=== PATIENT | male | born 1940 | race Caucasian/White ===

== ENCOUNTER 2019-12-14 08:23 | Inpatient (IN) | payer MEDICARE ==
[~2019-12-14] VITALS: Ht 175.3 cm; Wt 66.2 kg
[2019-12-14] VITALS (46 sets, daily range): BP systolic 92–144; BP diastolic 16–88
--- NOTE | 2019-12-14 08:23 | NUR ---
[facility] TO ER BED 07
[2019-12-14] MEDS ORDERED: PANTOPRAZOLE 40 MG INJ VIAL IVP ONE (08:25)
[2019-12-14] MEDS ORDERED: NACL 0.9% 1,000 ML IV SCH (08:25)
--- NOTE | 2019-12-14 08:25 | NUR ---
79 Y/O MALE BIB [facility] C/O ONE EPISODE OF BLACK TARRY DIARRHEA THIS MORNING. PT DENIES ANY ABD PAIN/CHEST PAIN/COUGH/N/V/D. ABD MILDLY DISTENDED/FIRM, BOWEL SOUNDS NORMOACTIVE IN ALL QUADRANTS. DENIES ANY LIGHT HEADEDNESS/ WEAKNESS. UPON ARRIVAL TO ER, PT CARDIAC RYTHM WAS AFIB/SVT. ERMD NOTIFIED. AAOX4. PMH: HTN NKA
--- NOTE | 2019-12-14 08:34 | NUR ---
IV INSERTED BY EMS, BOLUS STARTED
[2019-12-14] MEDS ORDERED: ADENOSINE 6 MG/2 ML VIAL IVP ONE ×4 (08:38→08:55)
--- NOTE | 2019-12-14 08:40 | NUR ---
2 RN'S AND ERMD AT BEDSIDE FOR ADENOSINE ADMINISTRATION
[2019-12-14] MEDS ORDERED: DILTIAZEM 25 MG/5 ML VIAL IVP ONE ×2 (08:55)
[2019-12-14 09:05] LABS: BASOPHILS % (AUTO) 0.4 % (0.0-2.0); EOSINOPHILS # (AUTO) 0.1 K/uL (0-0.4); EOSINOPHILS % (AUTO) 1.1 % (0.0-4.0); HEMATOCRIT 41.1 % (36-52); HEMOGLOBIN 14.1 g/dL (12.0-18.0); LYMPHOCYTES # (AUTO) 0.5 K/uL (2.0-11.5); LYMPHOCYTES % (AUTO) 5.2 % (20.5-51.1); MEAN CORPUSCULAR HEMOGLOBIN 31 pg (27-31); MEAN CORPUSCULAR HGB CONC 34 g/dL (33-37); MEAN CORPUSCULAR VOLUME 91.6 fL (80-94); MONOCYTES # (AUTO) 0.8 K/uL (0.8-1.0); MONOCYTES % (AUTO) 8.1 % (1.7-9.3); NEUTROPHILS # (AUTO) 8.2 K/uL (1.8-7.7); NEUTROPHILS % (AUTO) 85.2 % (42.2-75.2); PLATELET COUNT (AUTO) 283 K/uL (140-450); RED BLOOD CELL COUNT(AUTO) 4.49 MIL/uL (4.20-6.10); RED CELL DISTRIBUTION WIDTH 14.1 % (11.6-13.7); WHITE BLOOD COUNT (AUTO) 9.6 K/uL (4.8-10.8)
--- NOTE | 2019-12-14 09:13 | NUR ---
PT IS RESTING IN BED, DENIES ANY PAIN AT THIS TIME. RESP EVEN AND UNLABORED. AAOX4.
[2019-12-14 09:21] LABS: ANION GAP 17.1 (8-16); ASPARTATE AMINOTRANSFERASE 30 U/L (15-37); CARBON DIOXIDE 24.3 mmol/L (21-32); CHLORIDE 102 mmol/L (98-107); CREATININE 1.3 mg/dL (0.6-1.3); GLUCOSE 282 mg/dL (74-106); POTASSIUM 3.4 mmol/L (3.5-5.1); SODIUM SERUM 140 mmol/L (136-145); TOTAL BILIRUBIN 0.9 mg/dL (0.0-1.0); UREA NITROGEN, BLOOD 10 mg/dL (7-18)
[2019-12-14 09:24] LABS: PROTHROMBIN TIME 9.6 secs (10.8-13.4)
[2019-12-14] MEDS ORDERED: DILTIAZEM 125 MG in DEXTROSE 5% 100 ML IV ONE (09:30)
--- NOTE | 2019-12-14 10:42 | NUR ---
PT IS RESTING IN BED. NO CHANGES IN CONDITION OBSERVED. VSS.
--- NOTE | 2019-12-14 11:40 | NUR ---
PT AMBULATED TO BATHROOM WITH MYSELF, VSS
[2019-12-14] MEDS ORDERED: HYDROcodone/APAP 5/325 MG 1 TAB TAB PO PRN (11:50)
[2019-12-14] MEDS ORDERED: DOCUSATE SODIUM 100 MG GELCAP PO PRN (11:50)
[2019-12-14] MEDS ORDERED: ONDANSETRON 4 MG/2 ML VIAL IM/IVP PRN (11:50)
[2019-12-14] MEDS ORDERED: MORPHINE SULFATE 2 MG/ML SYR IVP PRN (11:50)
[2019-12-14] MEDS ORDERED: ACETAMINOPHEN 325 MG TAB PO PRN (11:50)
[2019-12-14 12:03] LABS: APPEARANCE,URINE SL CLOUDY (CLEAR); BILIRUBIN,URINE NEGATIVE (NEGATIVE); BLOOD, URINE TRACE-I (NEGATIVE); COLOR,URINE YELLOW (YELLOW); LEUKOCYTE ESTERASE ,URINE NEGATIVE (NEGATIVE); NITRITE, URINE NEGATIVE (NEGATIVE); PH,URINE 6.5 (5.0-9.0); UGLUCOSE 2+ (NEGATIVE)
[2019-12-14 12:21] LABS: HYALINE CASTS, URINE 0-10 /LPF (None Seen); RBC,URINE 0-5 /HPF (0-5)
[2019-12-14] MEDS ORDERED: DEXTROSE 50% 50 ML SYR IVP PRN (12:40)
[2019-12-14 12:49] LABS: MAGNESIUM 1.4 mg/dL (1.8-2.4); PHOSPHORUS 2.9 mg/dL (2.5-4.9); THYROID STIMULATING HORMONE 2.38 uIU/mL (0.34-3.74)
--- NOTE | 2019-12-14 12:50 | NUR ---
ADMITTED FROM ER THIS 79 YEAR OLD WHITE MALE PER JENNIFER ACCOMPANIED BY ER NURSES WITH CC OF BLACK STOOLS THIS AM. ON CARDIZEM DRIP AT 15 MG/HR VIA LEFT AC IV SITE. FOR A FIB WITH RVR. HR AT THIS TIME 94/MIN. PT IS AWAKE AND ALERT. DENIES ANY CHEST DISCOMFORTS. RESP. EASY AND REGULAR. 02 SAT 97% ON RA. VALENTE WELL. HAND SUEDE CLEANER EQUAL.
--- NOTE | 2019-12-14 12:52 | NUR ---
Patient will be admitted to care of [facility]. Admited to ICU. Will go to room 105. Belongings list completed. Report to SABRINA LAWSON.
[2019-12-14] MEDS: NACL 0.9% 1,000 ML IV SCH (13:11)
--- NOTE | 2019-12-14 13:20 | NUR ---
USED THE URINAL. STOOD AT SIDE OF BED. VOIDED 350 ML OF CLEAR YELLOW URINE. TOLERATED ACTIVITY WELL.
--- NOTE | 2019-12-14 13:23 | NUR ---
HUSAM 20MEQ STARTED.
[2019-12-14] MEDS ORDERED: KCL 20 MEQ/WATER INJ PREMIX 100 ML IV SCH (13:30)
--- NOTE | 2019-12-14 14:15 | NUR ---
PT. C/O PAIN ON THE LEFT AC IV SITE. WANTS KCL TO BE STOPPED DUE TO PAIN. K RIDER STOPPED. DR. SHUKLA NOTIFIED.
--- NOTE | 2019-12-14 16:30 | NUR ---
TO CT SCAN PER BED ON PORTABLE LAB PACK CHEMIST ACCPD BY AND MELT SUPERVISOR.
--- NOTE | 2019-12-14 16:40 | NUR ---
BACK TO ICU POST CT OF THE ABDOMEN.
[2019-12-14] MEDS: BLOOD GLUCOSE MONITORING 1 DEV DEV FS SCH ×2 (16:52→21:30)
[2019-12-14] MEDS: INSULIN LISPRO SLIDING SCALE 100 UNITS/ML VIAL SUBQ PRN ×2 (16:53→21:34)
[2019-12-14] MEDS: MAG SULF 2000 MG/WATER PREMIX 50 ML IV SCH ×2 (17:00→19:26)
[2019-12-14] MEDS: DILTIAZEM 125 MG in DEXTROSE 5% 100 ML IV SCH (17:28)
--- NOTE | 2019-12-14 17:30 | NUR ---
DINNER SERVED. FED SELF. ATE 25%. NO N/V.
[2019-12-14] MEDS ORDERED: GLIP10TE PO (17:35)
[2019-12-14] MEDS ORDERED: DONE10TA10 PO (17:35)
[2019-12-14] MEDS ORDERED: LINA5TAB PO (17:35)
[2019-12-14] MEDS ORDERED: SIMV40TA1 PO (17:35)
[2019-12-14] MEDS ORDERED: METO50TE2 PO (17:35)
--- NOTE | 2019-12-14 17:40 | NUR ---
SPOKE TO PT'S DAUGHTER, DRAKE TURCIOS ([phone]). UPDATED ON PT'S CONDITION.
--- NOTE | 2019-12-14 18:00 | NUR ---
NO BM DURING THIS SHIFT. UNABLE TO COLLECT STOOL FOR OB.
--- NOTE | 2019-12-14 18:15 | NUR ---
DR. CALDERON HERE TO SEE AND EXAMINE PT. PT. REMAINS IN A FIB. HR 114/MIN. ON CARDIZEM DRIP AT 15 MG/HR.
--- NOTE | 2019-12-14 19:20 | NUR ---
RECEIVED REPORT FROM DAYSHIFT NURSE AT PATIENTS BEDSIDE. PT AWAKE AND ALERT IN BED, MAKES NEEDS KNOWN, FOLLOWS ALL COMMANDS. 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 PERRLA, 3MM, BRISK. ON ROOM AIR. LUNG SOUNDS CLEAR, EQUAL CHEST RISE, BREATHING IS UNLABORED. HEART RATE: 93 BPM, AFIB, ON CARDIZEM DRIP, 15MG/HR (15ML/HR). LEFT AC, 18G, HEPARIN LOCKED. NO SYMPTOMS, AND LEFT HAND, 20 G, SALINE FLUSHED, PATENT, NO SYMPTOMS. ABDOMEN IS SOFT, NONTENDER, ACTIVE BOWEL SOUNDS. PATIENT IS CONTINENT, USES URINAL. SCD's IN PLACE, PATIENT ABLE TO MOVE ALL EXTREMITIES, INDEPENDENTLY SELF TURNS. SKIN INTACT, WARM AND DRY, AFEBRILE. NO COMPLAINTS OF PAIN. ORIENTED TO TREATMENT PLAN AND CALL LIGHT. ALL VALUABLES WITHIN REACH. BED LOCKED AND IN LOWEST POSITION, SIDERAILS UP, WILL CONTINUE TO MONITOR.
--- NOTE | 2019-12-14 20:00 | NUR ---
2ND BAG OF MAGNESIUM STARTED.
--- NOTE | 2019-12-14 20:45 | NUR ---
BEDSIDE COMMODE GIVEN, PATIENT ORIENTED TO STOOL SAMPLE COLLECTION AND ORIENTED TO NOTIFY RN WHEN COMMODE IS NEEDED. CALL LIGHT WITHIN REACH. PT SITTING UP IN BED ON CELL PHONE. DENIES PAIN, ALL NEEDS MET.
--- NOTE | 2019-12-14 21:10 | NUR ---
EMPTIED 250 ML OF CLEAR YELLOW URINE.
[2019-12-15] VITALS (47 sets, daily range): BP systolic 83–143; BP diastolic 26–97
--- NOTE | 2019-12-15 00:12 | NUR ---
RESTING WELL IN BED. MAGNESIUM IV COMPLETE. IVF INFUSING. CARDIZEM DRIP CONT TO INFUSE AT 15MG/HR. PATIENT ALERT TO NAME. HAS HEARING AIDS OUT AND STORED IN CONTAINER. DENIES PAIN. TEMP WITHIN RANGE. WILL CONTINUE TO MONITOR. CALL LIGHT WITHIN REACH.
--- NOTE | 2019-12-15 02:45 | NUR ---
PT OUT OF BED TO USE URINAL. NO INCIDENT NOTED. BLOOD PRESSURE, SBP WILL GO BELOW 100, DECREASED CARDIZEM DRIP TO 10MG/HR. HR WITHIN RANGE. SAFETY MEASURES IN PLACE. WILL CONTINUE TO MONITOR.
[2019-12-15] MEDS: DILTIAZEM 125 MG in DEXTROSE 5% 100 ML IV SCH (03:18)
--- NOTE | 2019-12-15 04:10 | NUR ---
EYES CLOSED. ABLE TO SELF TURN. VISIBLE CHEST RISE AND FALL. SIDERAILS UP. CONNECTED TO STAGE ELECTRICIAN HELPER. FLACC 0
[2019-12-15 06:24] LABS: ANION GAP 15.6 (8-16); CARBON DIOXIDE 23.4 mmol/L (21-32); CHLORIDE 103 mmol/L (98-107); CREATININE 0.9 mg/dL (0.6-1.3); GLUCOSE 216 mg/dL (74-106); SODIUM SERUM 139 mmol/L (136-145); UREA NITROGEN, BLOOD 7 mg/dL (7-18)
[2019-12-15 06:25] LABS: BASOPHILS % (AUTO) 0.5 % (0.0-2.0); CHOL/HDL RATIO 3.6 (1-4.5); EOSINOPHILS # (AUTO) 0.2 K/uL (0-0.4); EOSINOPHILS % (AUTO) 2.6 % (0.0-4.0); HEMATOCRIT 41.4 % (36-52); HEMOGLOBIN 14.3 g/dL (12.0-18.0); LYMPHOCYTES # (AUTO) 0.7 K/uL (2.0-11.5); LYMPHOCYTES % (AUTO) 9.4 % (20.5-51.1); MEAN CORPUSCULAR HEMOGLOBIN 31 pg (27-31); MEAN CORPUSCULAR HGB CONC 35 g/dL (33-37); MEAN CORPUSCULAR VOLUME 90.5 fL (80-94); MONOCYTES # (AUTO) 0.7 K/uL (0.8-1.0); MONOCYTES % (AUTO) 9.6 % (1.7-9.3); NEUTROPHILS # (AUTO) 5.7 K/uL (1.8-7.7); NEUTROPHILS % (AUTO) 77.9 % (42.2-75.2); PLATELET COUNT (AUTO) 288 K/uL (140-450); RED BLOOD CELL COUNT(AUTO) 4.57 MIL/uL (4.20-6.10); RED CELL DISTRIBUTION WIDTH 13.8 % (11.6-13.7); WHITE BLOOD COUNT (AUTO) 7.4 K/uL (4.8-10.8)
[2019-12-15] MEDS: BLOOD GLUCOSE MONITORING 1 DEV DEV FS SCH ×4 (06:33→21:01)
[2019-12-15] MEDS: INSULIN LISPRO SLIDING SCALE 100 UNITS/ML VIAL SUBQ PRN ×4 (06:42→20:46)
--- NOTE | 2019-12-15 06:45 | NUR ---
GAVE 4 UNITS HUMALOG FOR BLOOD SUGAR 216. TOLERATED WELL. PATIENT REFUSES ORAL CARE AT THIS TIME. WANTS TO SLEEP. CARDIZEM DRIP STILL INFUSING AT 10ML/HR, IVF AT 40 ML/HR. ON ROOM AIR. NO COMPLAINTS At this time. call light in reach.
--- NOTE | 2019-12-15 07:30 | NUR ---
RECEIVED BEDSIDE REPORT FROM GLASS SCIENCE ENGINEER NURSE, PT IS SLEEPING IN BED, [place], AAOX4, VSS, DENIES PAIN, NO S/S OF DISTRESS, CLEAR LUNG SOUNDS YUNI, ON RA, A-FIB ON DIE PRESSER, SOFT ABDOMEN WITH ACTIVE BOWEL SOUNDS, CCHO DIET, CONTINENT WITH B&B'S, ABLE TO USE BEDSIDE COMMODE, ABLE TO MOVE ALL EXTREMITIES, SKIN IS WARM AND DRY TO TOUCH, NO OPEN WOUND PRESENT IV TO LEFT AC 18GA, PATIENT AND RUNNING CARDIZEM AT 10 MG/HR, IV TO LEFT HAND, 20GA, RUNNING NS AT 40 ML/HR, HOB ELEVATED 30 DEGREES, SAFETY MEASURES IN PLACE, CALL LIGHT WITHIN REACH, WILL CONTINUE TO MONITOR.
--- NOTE | 2019-12-15 08:00 | NUR ---
BREAKFAST OFFERED, PATIENT ATE 100%OF THE MEAL.
--- NOTE | 2019-12-15 08:45 | NUR ---
SCHEDULED MEDICATION GIVEN, PATIENT ABLE TO SWALLOW PILLS WHOLE WITHOUT DIFFICULTY.
[2019-12-15 08:50] LABS: MAGNESIUM 2.2 mg/dL (1.8-2.4); PHOSPHORUS 2.7 mg/dL (2.5-4.9)
[2019-12-15] MEDS: glipiZIDE ER 5 MG TABER PO SCH (08:54)
[2019-12-15] MEDS: PANTOPRAZOLE 40 MG INJ VIAL IVP SCH (08:54)
[2019-12-15] MEDS: DONEPEZIL 10 MG TAB PO SCH (08:54)
[2019-12-15] MEDS: METOPROLOL SUCCINATE 50 MG TABER PO SCH (08:55)
--- NOTE | 2019-12-15 10:00 | NUR ---
PATIENT IS RESTING IN BED, TALKING TO FAMILY ON THE PHONE, NO CHANGE OF CONDITION, BP DROPPING TO 86/46 HOLD DERRICK SINGH ORDERED, DR. BHATIA MADE AWARE. ABLE TO REPOSITION SELF IN BED, WILL CONTINUE TO MONITIOR.
[2019-12-15] MEDS ORDERED: POTASSIUM CHLORIDE 40 MEQ, LIDOCAINE MPF 1% 25 MG in NACL 0.9% 250 ML IV SCH (11:00)
--- NOTE | 2019-12-15 12:00 | NUR ---
SITTING UP EATING LUNCH, VSS, DENIES PAIN, ABLE TO EAT 100% OF LUNCH AT THIS TIME.
[2019-12-15] MEDS: NACL 0.9% 1,000 ML IV SCH (12:26)
--- NOTE | 2019-12-15 12:28 | NUR ---
DR. CALDERON CAME IN TO SEE PATIENT AT BEDSIDE, UPDATED PATIENT'S CONDITION, WILL FOLLOW UP WITH NEW ORDERS.
--- NOTE | 2019-12-15 12:45 | NUR ---
DR. BABIN CAME IN TO SEE PATIENT AT BEDSIDE, WILL FOLLOW UP WITH NEW ORDERS.
--- NOTE | 2019-12-15 14:00 | NUR ---
NO CHANGE OF CONDITION, ON HD NOW. Addendum: 12/15/19 at 1706 by Tamiko Mendoza RN WRONG PATIENT'S NOTE.
--- NOTE | 2019-12-15 15:00 | NUR ---
DR. VIRK CAME IN TO SEE PATIENT AT BEDSIDE, HD COMPLETED 1.3L OUTPUT PER HD NURSE, RIGHT SUBCLAVIAN TUNNELLED CATHETER CLOTTED, NOT ABLE TO DO CLEANING AT THIS TIME, CATH FLOW ORDERED AND GIVEN BY HD NURSE. Addendum: 12/15/19 at 1706 by Tamiko Mendoza RN WRONG PATIENT'S NOTE.
--- NOTE | 2019-12-15 16:00 | NUR ---
PATIENT SITTING UP TO CHAIR, NO S/S OF DISTRESS, PM CARE AND BED LINING CHANGED, VSS, DENIES PAIN.
--- NOTE | 2019-12-15 16:00 | NUR ---
PM CARE AND ORAL CARE PROVIDED, WEN CATHETER CARE DONE, WOUND CARE PROVIDED AND DRESSING CHANGED, PICTURES TAKEN, POSITION CHANGED FOR OFF LOAD PRESSURE. Addendum: 12/15/19 at 1705 by Tamiko Mendoza RN WRONG PATIENT'S NOTED
--- NOTE | 2019-12-15 16:40 | NUR ---
DR. FRIEND CAME IN TO SEE PATIENT AT BEDSIDE, NO CHANGE OF ORDER AT THIS TIME.
--- NOTE | 2019-12-15 18:00 | NUR ---
PATIENT LYING ON BED, NO S/S OF DISTRESS, ATE 100% OF DINNER, VSS, DENIES PAIN.
--- NOTE | 2019-12-15 19:15 | NUR ---
REPORT GIVEN TO REGISTERED ART THERAPIST NURSE AT BEDSIDE FOR CONTINUE OF CARE, PT IS IN STABLE CONDITION
--- NOTE | 2019-12-15 20:00 | NUR ---
PT IS ALERT AND ORIENTED X3. RESPIRATION EVEN AND UNLABORED. CLEAR LUNG SOUNDS ALL THROUGHOUT. ORAL MUCOSA PINK AND MOIST. HEAD OF BED ELEVATED AT 30 DEGREES. BED IN LOWEST POSITION,SIDE RAILS UPX2. SKIN WARM, DRY AND INTACT. ABDOMEN SOFT, FLAT AND NONTENDER. BOWEL SOUNDS ACTIVE. NO CONCERNS AND COMPLAINTS MADE. PERIPHERAL IV ON THE LEFT AC 18G AND LEFT HAND 20G, ASYMPTOMATIC, INTACT AND PATENT. USES HEARING AIDS ON BILATERAL EARS. ABLE TO MAKE NEEDS KNOWN TO STAFF. ABLE TO USE URINAL AND BEDSIDE COMMODE. SAFETY MEASURES IN PLACE. WILL CONTINUE TO MONITOR.
--- NOTE | 2019-12-15 22:11 | NUR ---
PT RESTING IN BED WITH EYES CLOSED. NO CONCERNS ANG COMPLAINTS MADE AT THIS TIME. WILL CONTINUE TO MONITOR
[2019-12-16] VITALS (12 sets, daily range): BP systolic 91–159; BP diastolic 59–109
--- NOTE | 2019-12-16 | NUR ---
PT ABLE TO REPOSITION HIMSELF IN BED. ABLE TO USE COMMODE AND URINAL WITH MINIMAL ASSIST. EDUCATED ON THE IMPORTANCE OF USING THE CALL LIGHT. WILL CONTINUE TO MONITOR.
[2019-12-16] MEDS ORDERED: METOPROLOL 5 MG/5 ML VIAL IV SCH (00:45)
--- NOTE | 2019-12-16 00:54 | NUR ---
DR. LEE IN THE UNIT. PT HEART RATE >100. MD ORDERED LOPRESSOR IV 5MG/5ML, GIVEN AT THIS TIME. WILL CONTINUE TO MONITOR.
--- NOTE | 2019-12-16 03:00 | NUR ---
PT IS CONFUSED AND PULLED HIS PERIPHERAL IV LINE. NEW PERIPHERAL LINE INSERTED ON THE RIGHT FOREARM WRAPPED WITH KERLIX. WILL CONTINUE TO MONITOR.
--- NOTE | 2019-12-16 05:12 | NUR ---
PT RESTING QUIETLY IN BED. ON ROOM AIR. STILL AFIB ON THE MONITOR. WILL CONTINUE TO MONITOR.
[2019-12-16 06:12] LABS: ANION GAP 13.8 (8-16); CARBON DIOXIDE 22.8 mmol/L (21-32); CHLORIDE 105 mmol/L (98-107); CREATININE 0.9 mg/dL (0.6-1.3); GLUCOSE 205 mg/dL (74-106); POTASSIUM 3.6 mmol/L (3.5-5.1); SODIUM SERUM 138 mmol/L (136-145); UREA NITROGEN, BLOOD 13 mg/dL (7-18)
[2019-12-16 06:13] LABS: MAGNESIUM 1.7 mg/dL (1.8-2.4); PHOSPHORUS 1.9 mg/dL (2.5-4.9)
[2019-12-16 06:14] LABS: BASOPHILS % (AUTO) 0.6 % (0.0-2.0); EOSINOPHILS # (AUTO) 0.1 K/uL (0-0.4); EOSINOPHILS % (AUTO) 1.5 % (0.0-4.0); HEMATOCRIT 42.5 % (36-52); HEMOGLOBIN 14.6 g/dL (12.0-18.0); LYMPHOCYTES # (AUTO) 0.8 K/uL (2.0-11.5); LYMPHOCYTES % (AUTO) 10.2 % (20.5-51.1); MEAN CORPUSCULAR HEMOGLOBIN 31 pg (27-31); MEAN CORPUSCULAR HGB CONC 34 g/dL (33-37); MONOCYTES # (AUTO) 0.7 K/uL (0.8-1.0); MONOCYTES % (AUTO) 8.6 % (1.7-9.3); NEUTROPHILS # (AUTO) 6.2 K/uL (1.8-7.7); NEUTROPHILS % (AUTO) 79.1 % (42.2-75.2); PLATELET COUNT (AUTO) 307 K/uL (140-450); RED BLOOD CELL COUNT(AUTO) 4.67 MIL/uL (4.20-6.10); WHITE BLOOD COUNT (AUTO) 7.8 K/uL (4.8-10.8)
[2019-12-16] MEDS: BLOOD GLUCOSE MONITORING 1 DEV DEV FS SCH ×4 (06:19→21:08)
[2019-12-16] MEDS: INSULIN LISPRO SLIDING SCALE 100 UNITS/ML VIAL SUBQ PRN ×4 (06:21→21:13)
--- NOTE | 2019-12-16 07:30 | NUR ---
RECEIVED CHANGE OF SHIFT REPORT FROM RETAIL OFFICE MANAGER NURSE. PT WAS FOUND LAYING ON BED W/ HOB AT 30 DEGREES. PT IS AWAKE AND ALERT, ORIENTED X4. GCS=15 EYES PERRL. 3MM. PT ABLE TO FOLLOW SIMPLE COMMANDS. S1S2 HEARD. +2 RADIAL PULSES. A-FIB ON MONITOR. LUNG SOUNDS ARE CLEAR W/ EQUAL RISE AND FALL OF THE CHEST. PT ABLE TO FEED HIMSELF. BREAKFAST WAS GIVEN TO HIM. PT ABLE TO MOVE ALL FOUR EXTREMITIES W/ EASE. PT HAS RIGHT FOREARM 22G. LINE IS ASYMPTOMATIC, PATENT AND INTACT. IVF RUNNING AT 40 ML/HR. PT HAS HEARING AIDS ON BOTH EARS. SCD PLACED ON BOTH LEGS. PT DENIES PAIN. BED IS LOCKED, HOB 30 DEGREES. CALL LIGHT WITHIN REACH. WILL CONTINUE TO [facility].
--- NOTE | 2019-12-16 07:32 | NUR ---
ENDORSED PT TO DAY SHIFT NURSE FOR CONTINUITY OF CARE.
--- NOTE | 2019-12-16 08:29 | NUR ---
DISCHARGE PLANNING: THIS IS AN 79 YO MALE PATIENT FROM HOME, WHO CAME IN DUE TO BLACK WATERY STOOL. PAST MEDICAL HISTORY OF HTN AND HERNIA REPAIR. INITIAL DIAGNOSIS OF SVT AND GI BLEED. CURRENT LABS INCLUDE WBC 7.8, H/H 14.6/42.5, NA/K 138/3.6, BUN/CREA 13/0.9 AND MAG 1.7. ON ROOM AIR. GI, CARDIO AND PULMO CONSULTS IN PLACE. STOOL OCCULT BLOOD NEGATIVE. CXR ON ADMISSION SHOWED BIBASILAR SUBSEGMENTAL ATELECTASIS. 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 DC PLAN PENDING ON PATIENT'S RESPONSE TO TREATMENT. Addendum: 12/16/19 at 1346 by Nereida Candelaria RECEIVED A MESSAGE FROM LATA HOLM REQUESTING FOR UPDATES. CONTACTED LATA HOLM AT [phone], ABLE TO SPEAK TO LATA LEBLANC. SHE STATED THAT LEDA HOLM IS ON LUNCH BREAK AT THIS TIME AND WILL RELAY THE MESSAGE TO CALL ME BACK. PROVIDED HER OF MY CONTACT INFO. WILL FOLLOW UP. Addendum: 12/16/19 at 1353 by Nereida Candelaria UPDATED CLINICALS FAXED TO [facility] AT [phone]. WILL FOLLOW UP. Addendum: 12/17/19 at 0859 by Nereida Candelaria CM DOWNGRADED TO TELE STATUS TODAY. Addendum: 12/17/19 at 1140 by Nereida Candelaria CM RECEIVED A CALL FROM LATA HOLM OF [facility], PROVIDED UPDATES ON PATIENT 'S CONDITION. SHE STATED IF THERE WILL BE ANY DC NEEDS TO INFORM HER. UPDATED CLINICALS SENT. Addendum: 12/18/19 at 1321 by Nereida Candelaria CM LATA HOLM OF [facility], MADE AWARE THAT PATIENT WILL BE DISCHARGING TO HOME TODAY.
[2019-12-16] MEDS: glipiZIDE ER 5 MG TABER PO SCH (09:08)
[2019-12-16] MEDS: METOPROLOL SUCCINATE 50 MG TABER PO SCH (09:09)
[2019-12-16] MEDS: DONEPEZIL 10 MG TAB PO SCH (09:10)
[2019-12-16] MEDS: PANTOPRAZOLE 40 MG INJ VIAL IVP SCH (09:11)
[2019-12-16] MEDS ORDERED: MAG SULF 2000 MG/WATER PREMIX 50 ML IV SCH (09:30)
--- NOTE | 2019-12-16 09:32 | NUR ---
PATIENT HAS BEEN SCREENED AND CATEGORIZED MODERATE NUTRITION RISK. PATIENT WILL BE SEEN WITHIN 3-5 DAYS OF ADMISSION. 12/16/19 12/18/[address]
--- NOTE | 2019-12-16 10:00 | NUR ---
DR. SHUKLA, DR. MONREAL AND DR SCHERER AT PT BEDSIDE
--- NOTE | 2019-12-16 11:17 | NUR ---
ADVERTISING COLUMNIST NOTE: Basic Screen: Yes High Risk DC Screen Blain: DRAKE TURCIOS [place] Relationship: DAUGHTER Pre-Admission Living Arrangements: Lives with Other Prior ADL Independent Current Home Health Name/Tel: N/A Current DME/02 Name/Tel: N/A Current Hospice Name/Tel: N/A Current Dialysis Name/Tel: N/A Healthcare Decision Maker: Patient Advance Directive No Physician Orders for Life Sustaining Treatment Form No Patient/Family Have Educational Needs No Discipline: Case Mgt/Social Svcs Tentative Discharge Plan/Destination: No Needs Identified Will require assistance post discharge: No Referred to Safety Analyst: No Tentative Discharge Plan Summary: PATIENT IS AN 79-YEAR-OLD MALE ADMITETD FOR SUPRAVENTICULAR TACHYCARDIA. PATIENT HAS PMHX OF HTN. PATIENT WAS ADMITTED FROM HOME WHERE PATIENT LIVES WITH ROOMMATES. SW CONTACTED DRAKE TURCIOS [phone] TO VERIFY DEMOGRAPHICS. PER DRAKE, PATIENT IS INDEPENDENT WITH ADLS, LIVES WITH ROOMMATES, AND REPORTS NO HISTORY OF SUBSTANCE ABUSE OR MENTAL HEALTH. TENTATIVE DISCHARGE PLAN IS FOR PATIENT TO RETURN HOME. NO FURTHER NEEDS IDENTIFIED. Signature: VIRGINIE DEL ANGEL Date: Dec 16, 2019 Time: 11:13
[2019-12-16] MEDS: SODIUM PHOS / POTASSIUM PHOS 1 PKT PDR PO SCH ×2 (11:31→17:27)
[2019-12-16] MEDS: NACL 0.9% 1,000 ML IV SCH (11:34)
--- NOTE | 2019-12-16 12:00 | NUR ---
PT WAS REMINDED OF POC DUE TO EXPRESSING WISHES OF LEAVING HOSPITAL. PT IS COOPERATIVE.
[2019-12-16] MEDS ORDERED: DIGOXIN 0.25 MG/ML AMP IV SCH ×2 (13:15→18:00)
[2019-12-16] MEDS: DILTIAZEM 60 MG TAB PO SCH ×3 (13:54→22:20)
[2019-12-16] MEDS ORDERED: POTASSIUM CHLORIDE 20% 40 MEQ/15 ML UDC PO SCH (14:30)
[2019-12-16] MEDS ORDERED: MAGNESIUM CITRATE 300 ML BTL PO SCH (14:30)
--- NOTE | 2019-12-16 15:00 | NUR ---
DR. BABIN AT PT BEDSIDE
[2019-12-16] MEDS: SENNA 8.6 MG TAB PO SCH (17:26)
[2019-12-16] MEDS: LACTULOSE 20 GM/30 ML UDC PO SCH ×2 (17:26→21:02)
[2019-12-16] MEDS: POLYETHYLENE GLYCOL 17 GM/PKT PO SCH (17:27)
--- NOTE | 2019-12-16 18:30 | NUR ---
UO AT 1500 W/ 3 VOIDS AND 3 STOOLS
--- NOTE | 2019-12-16 19:20 | NUR ---
ENDORSED PT TO CUSTOMER SERVICE RECEPTIONIST NURSE TO ENSURE CONTINUITY OF CARE.
--- NOTE | 2019-12-16 19:30 | NUR ---
REPORT RECEIVED FROM DAY SHIFT RN. PT IS ALERT AND ORIENTED X3 WITH INTERMITTENT CONFUSION. RESPIRATION EVEN AND UNLABORED. PEDAL PULSES PALPABLE. SKIN WARM, DRY AND INTACT. ABDOMEN SOFT, FLAT AND NONTENDER. BOWEL SOUNDS ACTIVE. NO CONCERNS AND COMPLAINTS MADE. PERIPHERAL IV ON THE RIGHT FOREARM G22 WRAPPED WITH KERLIX, INFUSING @40ML NORMAL SALINE, ASYMPTOMATIC, INTACT AND PATENT. CLEAR LUNG SOUNDS ALL THROUGHOUT. ORAL MUCOSA PINK AND MOIST. HEAD OF BED ELEVATED AT 30 DEGREES. BED IN LOWEST POSITION,SIDE RAILS UPX2. USES HEARING AIDS ON BILATERAL EARS. A-FIB ON THE MONITOR. ABLE TO MAKE NEEDS KNOWN TO STAFF. ABLE TO USE URINAL AND BEDSIDE COMMODE. SAFETY MEASURES IN PLACE. WILL CONTINUE TO MONITOR.
[2019-12-16] MEDS: POTASSIUM CHLORIDE 20% 40 MEQ/15 ML UDC PO SCH (21:02)
--- NOTE | 2019-12-16 22:20 | NUR ---
PT HAD EPISODES OF SVT TO AFIB. HR >150. DR LEE MADE AWARE. OKAYED TO GIVE MIDNIGHT DOSE OF CARDIZEM 60MG AT THIS TIME. WILL CONTINUE TO MONITOR.
--- NOTE | 2019-12-16 22:55 | NUR ---
PT HAS INTERMITTENT CONFUSIONS. CALLED PT'S DAUGHTER EMMY TURCIOS TO GET CONSENT FOR COLONOSCOPY TOMORROW. SHE STATED SHE WILL CALL HER DAD FIRST. AWAITING FOR RETURN CALL.
--- NOTE | 2019-12-16 23:30 | NUR ---
SPOKE WITH PT'S DAUGHTER (DRAKE) AND (MADI). PT DAUGHTER GAVE CONSENT TO DISCLOSE INFORMATIONS ABOUT THE PT'S CONDITION AND PLAN OF CARE TO PT'S MADI ([phone]). VERBAL CONSENT WITNESSED BY 2 NURSES. PT HAS INTERMITTENT CONFUSIONS AT TIMES. PT'S DAUGHTER DID NOT GIVE ANY CONSENT FOR COLONOSCOPY PROCEDURE TOMORROW BECAUSE PT DOESN'T WANT TO UNDERGO WITH THE SAID PROCEDURE. THIS DENTURE PROCESSOR EXPLAINED THAT IF THEY DON'T CONSENT FOR THE PROCEDURE, IT NEEDS 2 PHYSICIAN'S SIGNATURES TO PROCEED IF IT IS AN EMERGENT OR NECESSARY PROCEDURE AND THEY BOTH OKAYED FOR IT.
--- NOTE | 2019-12-16 23:45 | NUR ---
SPOKE TO THE RESIDENTS ABOUT MR. TURCIOS'S CASE. EMMY, HIS DAUGHTER DOES NOT WANT TO CONSENT TO HAVE THE COLONOSCOPY DONE DUE TO THE PATIENT REFUSING THE PROCEDURE. THE PATIENT APPEARS TO BE CONFUSED. HE IS AAOX2 TO TIME AND DATE BUT DOES NOT KNOW WHERE HE IS OR WHAT HE IS DOING HERE. PATIENT BELIEVES HE IS AT THIS BANK AND STATES THAT HE IS FINE AND HEALTHY EVEN THOUGH HIS HEART RATE OCCASIONALLY INCREASES AND IS IN AFIB. WHEN I SPOKE WITH THE PATIENT I ASKED INFORMED HIM OF THE PROCEDURE THAT WAS TO BE DONE TOMORROW AND PATIENT CLEARLY REFUSED THE PROCEDURE TO BE DONE. I SPOKE TO THE RESIDENTS ABOUT THIS CASE AND THEY SAID UNLESS THIS WAS AN EMERGENT PROCEDURE THEY COULD NOT SIGN ON BEHALF OF THE PATIENT AND THE ONLY WAY WOULD BE TO CALL IN AN ETHICS COMMITTEE TO MAKE A DECISION IF HE IS TRULY CONFUSED. SPOKE WITH EMMY AND UPDATED HER ON THE DECISIONS THAT WERE BEING MADE. PATIENT'S EMERGENCY CONTACT, EMMY, WANTS TO ADD PATIENT'S EX- TO HIS EMERGENCY CONTACT LIST SO SHE CAN RECEIVE INFORMATION ABOUT HIS HEALTH. EXPLAINED TO EMMY THAT DUE TO PATIENT BEING PARTIALLY ORIENTED THAT WE CANNOT ALLOW HER MOTHER TO BE ON THE LIST DUE TO THE PATIENT'S WISHES. SHE UNDERSTANDS WHY AND WHAT IS GOING ON.
[2019-12-17] VITALS (8 sets, daily range): BP systolic 108–145; BP diastolic 57–66
--- NOTE | 2019-12-17 01:00 | NUR ---
PT IS RESTING IN BED WITH EYES CLOSED. RHYTHM CONVERTED FROM A-FIB TO SINUS BRADYCARDIA. NO RESPIRATORY DISTRESS OBSERVED. PT ON ROOM AIR. WILL CONTINUE TO MONITOR.
--- NOTE | 2019-12-17 03:19 | NUR ---
PT HAD 6 EPISODES OF LOOSE STOOLS(SMALL -MODERATE) SINCE THE BEGINNING OF THIS SHIFT. PT HAD MAGNESIUM CITRATE AND LACTULOSE YESTERDAY. NORMAL SALINE INFUSING @40 MLS/HR. PT IS CURRENTLY NPO EXCEPT MEDS. WILL CONTINUE TO MONITOR.
[2019-12-17] MEDS: DILTIAZEM 60 MG TAB PO SCH ×3 (05:31→14:36)
--- NOTE | 2019-12-17 06:00 | NUR ---
PT HAD NO CONCERNS AND COMPLAINTS MADE. ABLE TO USE THE COMMODE AND URINAL. WILL CONTINUE TO MONITOR.
[2019-12-17 06:16] LABS: BASOPHILS % (AUTO) 0.5 % (0.0-2.0); EOSINOPHILS # (AUTO) 0.1 K/uL (0-0.4); EOSINOPHILS % (AUTO) 1.9 % (0.0-4.0); HEMATOCRIT 43.8 % (36-52); HEMOGLOBIN 14.7 g/dL (12.0-18.0); LYMPHOCYTES # (AUTO) 0.6 K/uL (2.0-11.5); LYMPHOCYTES % (AUTO) 7.9 % (20.5-51.1); MEAN CORPUSCULAR HEMOGLOBIN 31 pg (27-31); MEAN CORPUSCULAR HGB CONC 34 g/dL (33-37); MEAN CORPUSCULAR VOLUME 92.1 fL (80-94); MONOCYTES # (AUTO) 0.8 K/uL (0.8-1.0); MONOCYTES % (AUTO) 10.6 % (1.7-9.3); NEUTROPHILS % (AUTO) 79.1 % (42.2-75.2); PLATELET COUNT (AUTO) 308 K/uL (140-450); RED BLOOD CELL COUNT(AUTO) 4.76 MIL/uL (4.20-6.10); RED CELL DISTRIBUTION WIDTH 13.6 % (11.6-13.7); WHITE BLOOD COUNT (AUTO) 7.5 K/uL (4.8-10.8)
[2019-12-17] MEDS: BLOOD GLUCOSE MONITORING 1 DEV DEV FS SCH ×4 (06:17→21:36)
[2019-12-17] MEDS: INSULIN LISPRO SLIDING SCALE 100 UNITS/ML VIAL SUBQ PRN ×2 (06:18→17:30)
[2019-12-17 06:31] LABS: ANION GAP 17.6 (8-16); CHLORIDE 105 mmol/L (98-107); CREATININE 0.9 mg/dL (0.6-1.3); GLUCOSE 176 mg/dL (74-106); POTASSIUM 3.6 mmol/L (3.5-5.1); SODIUM SERUM 140 mmol/L (136-145); UREA NITROGEN, BLOOD 14 mg/dL (7-18)
--- NOTE | 2019-12-17 07:22 | NUR ---
ENDORSED PT TO DAY SHIFT RN FOR CONTINUITY OF CARE.
--- NOTE | 2019-12-17 07:25 | NUR ---
BEDSIDE REPORT RECEIVED FROM CRISIS WORKER NURSE, PT AOX2-3 WITH OCCASIONAL CONFUSION, SPEAKS CLEARLY, DENIES PAIN OR DISCOMFORT, UP OUT OF BED WITH MINIMAL ASSIST TO BEDSIDE COMMODE, RESP EVEN UNLABORED ON RA, ON ACREAGE REPORTER NSR HR 64, RR20, BP 121/61, O2SAT 94%, PIV 22G @ RFA, NS AT 40ML/HR, SITE WNL, POC REVIEWED, ALL SAFETY MEASURES IN PLACE, NO IMMEDIATE NEEDS AT THIS TIME.
[2019-12-17] MEDS: SENNA 8.6 MG TAB PO SCH ×2 (08:07→12:11)
[2019-12-17] MEDS: SODIUM PHOS / POTASSIUM PHOS 1 PKT PDR PO SCH ×4 (08:07→17:31)
[2019-12-17] MEDS: LACTULOSE 20 GM/30 ML UDC PO SCH ×2 (08:07→12:10)
[2019-12-17] MEDS: POTASSIUM CHLORIDE 20% 40 MEQ/15 ML UDC PO SCH (08:08)
[2019-12-17] MEDS: DONEPEZIL 10 MG TAB PO SCH (08:08)
[2019-12-17] MEDS: DIGOXIN 0.125 MG TAB PO SCH (08:08)
[2019-12-17] MEDS: PANTOPRAZOLE 40 MG INJ VIAL IVP SCH (08:08)
[2019-12-17] MEDS: glipiZIDE ER 5 MG TABER PO SCH (08:09)
--- NOTE | 2019-12-17 08:20 | NUR ---
DR SCHERER AND MEDICAL TEAM AT BEDSIDE FOR EVAL.
--- NOTE | 2019-12-17 08:50 | NUR ---
AM MEDS GIVEN, PT SWALLOWS PILLS WHOLE WITHOUT PROBLEM.
[2019-12-17] MEDS: POLYETHYLENE GLYCOL 17 GM/PKT PO SCH ×2 (09:00→12:11)
[2019-12-17] MEDS: METOPROLOL SUCCINATE 50 MG TABER PO SCH (09:00)
[2019-12-17] MEDS ORDERED: LACTULOSE 20 GM/30 ML UDC PO SCH (09:00)
--- NOTE | 2019-12-17 09:40 | NUR ---
UP TO BEDSIDE COMMODE, LIGHT BROWN LIGHT BROWN STOOL LIQ X1, STOOL OB COLLECTED, SENT TO LAB, PT HARD OF HEARING, HEARING AIDS OUT OF BATTERY, COMMUNICATION VIA WRITING ON WHITE BOARD. PT ABLE TO READ WITHOUT PROBLEM.
--- NOTE | 2019-12-17 10:45 | NUR ---
DR VILLALTA AT BEDSIDE, SPOKE WITH PATIENT WITH STETHESCOPE FOR HEARING, REGARDING COLONOSCOPY, PT CONSENTS TO PROCEDURE, CONSENT SIGNED
[2019-12-17] MEDS: NACL 0.9% 1,000 ML IV SCH (11:57)
[2019-12-17] MEDS ORDERED: diphenhydrAMINE 50 MG/ML VIAL ONE (12:06)
[2019-12-17] MEDS ORDERED: MIDAZOLAM 2 MG/2 ML VIAL ONE (12:06)
[2019-12-17] MEDS ORDERED: fentaNYL 0.05 MG/ML VIAL ONE (12:06)
--- NOTE | 2019-12-17 12:20 | NUR ---
PT TAKEN TO OR FOR COLONOSCOPY, PT WILL RETURN TO 121A WHEN DONE, PT MADE AWARE, DAUGHTER EMMY CALLED TO NOTIFY OF THE PLAN.
--- NOTE | 2019-12-17 13:13 | NUR ---
REPORT CALLED TO MOUNA LAWSON IN [facility], PT TO RETURN TO 121A WHEN COLONOSCOPY DONE, ALL PATIENT BELONGINGS INCLUDING WALLET, ROSARY, NECKLACE, HEARING AIDS, PANTS, BELT, SHOES SHIRT, SOCKS TAKEN TO PATIENT BY RENNY PASCUAL (GI).
--- NOTE | 2019-12-17 13:30 | NUR ---
PATIENT ARRIVED VIA GURNEY FROM OR. REPORT GIVEN BY RENNY PASCUAL FROM OR. PATIENT IS A TRANSFER FROM ICU. RECEIVED REPORT FROM RENNY HUGO. PLANS OF CARE DISCUSSED.
[2019-12-17] MEDS ORDERED: MIDAZOLAM 2 MG/2 ML VIAL IVP ONE (14:00)
[2019-12-17] MEDS ORDERED: fentaNYL 0.05 MG/ML VIAL IVP ONE (14:00)
--- NOTE | 2019-12-17 16:00 | NUR ---
PATIENT IS AAOX4. WATCHING TV. NO S/S OF DISTRESS NOTED. VS STABLE. CALL LIGHT WITHIN REACH.
--- NOTE | 2019-12-17 16:01 | NUR ---
P.T. NOTES P.T. EVAL COMPLETED; Pt AMBULATORY WITHOUT ASST DEVICE.
--- NOTE | 2019-12-17 19:05 | NUR ---
REPORT GIVEN TO RENNY COLBY FOR CONTINUITY OF CARE. PATIENT IN STABLE CONDITION.
--- NOTE | 2019-12-17 19:06 | NUR ---
RECEIVED REPORT FROM DAY SHIFT NURSE. PT IN BED RESTING WITH HOB ELEVATED. PT IS AWAKE, ALERT, ORIENTED X3-4. ABLE TO MAKE NEEDS KNOWN. RESPIRATIONS ARE EVEN AND UNLABORED TO ROOM AIR. SKIN IS WARM, DRY, AND INTACT. ABDOMEN IS SOFT AND NON-TENDER. IV ACCESS ON RFA G22 PATENT AND INTACT. IVF INFUSING WELL. PT DENIES ANY PAIN OR DISCOMFORT AT THIS TIME. PLAN OF CARE DISCUSSED. PT VERBALIZED UNDERSTANDING. SAFETY MEASURES IN PLACE. CALL LIGHT WITHIN REACH. WILL CONTINUE TO MONITOR.
--- NOTE | 2019-12-17 20:05 | NUR ---
VITAL SIGNS STABLE AT THIS TIME. PT DENIES ANY PAIN OR DISCOMFORT. NO REQUESTS MADE AT THIS TIME. SAFETY MEASURES IN PLACE. CALL LIGHT WITHIN REACH. WILL CONTINUE TO MONITOR.
--- NOTE | 2019-12-17 21:36 | NUR ---
BLOOD SUGAR 100. NO INSULIN COVERAGE NEEDED. WILL CONTINUE TO MONITOR.
[2019-12-18] VITALS: BP 137/75
--- NOTE | 2019-12-18 00:16 | NUR ---
VITAL SIGNS STABLE. PT IN BED RESTING. DENIES ANY PAIN OR DISCOMFORT. PT KEPT COMFORTABLE. SAFETY MEASURES IN PLACE. CALL LIGHT WITHIN REACH. WILL CONTINUE TO MONITOR.
--- NOTE | 2019-12-18 02:06 | NUR ---
ROUNDS MADE. PT ASLEEP. VISIBLE CHEST RISE AND FALL. NO S/SX OF DISTRESS NOTED. SAFETY MEASURES IN PLACE. CALL LIGHT IN PLACE. WILL CONTINUE TO MONITOR.
[2019-12-18 04:00] VITALS: BP 148/76
--- NOTE | 2019-12-18 04:10 | NUR ---
VITAL SIGNS STABLE. ASSISTED PT IN GOING TO RESTROOM AND BACK TO BED. PT NOT IN DISTRESS. DENIES ANY PAIN OR DISCOMFORT. SAFETY MEASURES IN PLACE. CALL LIGHT WITHIN REACH. WILL CONTINUE TO MONITOR.
[2019-12-18] MEDS: BLOOD GLUCOSE MONITORING 1 DEV DEV FS SCH ×2 (06:00→11:30)
--- NOTE | 2019-12-18 06:00 | NUR ---
BLOOD SUGAR 167. INSULIN COVERAGE GIVEN ORDERED. WILL CONTINUE TO MONITOR.
[2019-12-18] MEDS: INSULIN LISPRO SLIDING SCALE 100 UNITS/ML VIAL SUBQ PRN (06:12)
[2019-12-18 06:14] LABS: BASOPHILS % (AUTO) 0.5 % (0.0-2.0); EOSINOPHILS # (AUTO) 0.2 K/uL (0-0.4); EOSINOPHILS % (AUTO) 3.1 % (0.0-4.0); HEMATOCRIT 39.2 % (36-52); HEMOGLOBIN 13.3 g/dL (12.0-18.0); LYMPHOCYTES # (AUTO) 0.6 K/uL (2.0-11.5); LYMPHOCYTES % (AUTO) 9.9 % (20.5-51.1); MEAN CORPUSCULAR HEMOGLOBIN 31 pg (27-31); MEAN CORPUSCULAR HGB CONC 34 g/dL (33-37); MEAN CORPUSCULAR VOLUME 91.6 fL (80-94); MONOCYTES # (AUTO) 0.7 K/uL (0.8-1.0); MONOCYTES % (AUTO) 10.6 % (1.7-9.3); NEUTROPHILS # (AUTO) 4.8 K/uL (1.8-7.7); NEUTROPHILS % (AUTO) 75.9 % (42.2-75.2); PLATELET COUNT (AUTO) 276 K/uL (140-450); RED BLOOD CELL COUNT(AUTO) 4.28 MIL/uL (4.20-6.10); RED CELL DISTRIBUTION WIDTH 13.9 % (11.6-13.7); WHITE BLOOD COUNT (AUTO) 6.3 K/uL (4.8-10.8)
[2019-12-18] MEDS ORDERED: DILT60TA94 PO (06:23)
[2019-12-18] MEDS ORDERED: DIGO0.1211 PO (06:23)
[2019-12-18 06:36] LABS: ANION GAP 15.8 (8-16); CARBON DIOXIDE 22.7 mmol/L (21-32); CHLORIDE 105 mmol/L (98-107); CREATININE 0.9 mg/dL (0.6-1.3); GLUCOSE 144 mg/dL (74-106); POTASSIUM 3.5 mmol/L (3.5-5.1); SODIUM SERUM 140 mmol/L (136-145); UREA NITROGEN, BLOOD 10 mg/dL (7-18)
--- NOTE | 2019-12-18 07:05 | NUR ---
ENDORSED TO DAY SHIFT NURSE FOR CONTINUITY OF CARE. PT IS IN STABLE CONDITION.
--- NOTE | 2019-12-18 07:06 | NUR ---
RECEIVED REPORT FROM LASHA-RENNY. PT RESTING IN BED, AOX4, ON ROOM AIR WITH RIGHT FA #[id number]/[id number]. S/P COLONOSCOPY 12/16. DISCUSSED PLAN OF CARE AND PT VERBALIZED UNDERSTANDING. DR. VILLALTA TO SEE PT AND INFORMED PT THAT HE WILL BE D/C HOME TODAY. NO S/S OF RESPIRATORY DISTRESS OR DISCOMFORT NOTED AT THIS TIME. WILL CONTINUE TO MONITOR.
[2019-12-18] MEDS ORDERED: PSYL0.4C2 PO (07:48)
[2019-12-18] MEDS ORDERED: ATOR20TA40 PO (07:54)
[2019-12-18 08:00] VITALS: BP 127/64
[2019-12-18] MEDS: DONEPEZIL 10 MG TAB PO SCH (08:17)
[2019-12-18] MEDS: METOPROLOL SUCCINATE 50 MG TABER PO SCH (08:17)
[2019-12-18] MEDS: DIGOXIN 0.125 MG TAB PO SCH (08:17)
[2019-12-18] MEDS: glipiZIDE ER 5 MG TABER PO SCH (08:18)
[2019-12-18] MEDS: SODIUM PHOS / POTASSIUM PHOS 1 PKT PDR PO SCH (08:18)
--- NOTE | 2019-12-18 08:18 | NUR ---
SCHEDULED MEDICATIONS GIVEN AND TOLERATED WELL. NO S/S OF RESPIRATORY DISTRESS OR DISCOMFORT NOTED AT THIS TIME. WILL CONTINUE TO MONITOR.
--- NOTE | 2019-12-18 09:00 | NUR ---
SPOKE WITH DAUGHTER DRAKE TURCIOS REGARDING PT UPDATE. SHE IS AWARE THAT PT WILL BE D/C HOME TODAY. WILL NOTIFY HER ONCE PT IS READY.
[2019-12-18 10:50] VITALS: BP 127/64
--- NOTE | 2019-12-18 11:20 | NUR ---
PT SIGNED DISCHARGE PAPERWORK. DR. VILLALTA ORDERED TO LET THE PT KNOW THE IMPORTANCE OF GOING TO HIS FOLLOW UP DR APPOINTMENT WELL TAKING NEW MEDICATIONS. PT VERBALIZED UNDERSTANDING.
--- NOTE | 2019-12-18 11:25 | NUR ---
SPOKE WITH PT DAUGHTER DRAKE TURCIOS REGARDING DISCHARGING PT AND WHEN SHE WOULD BE ABLE TO PICKUP HER FATHER. SHE STATED ETA ONE HOUR AND A HALF. SHE IS TRAVELING FROM THE [facility].
--- NOTE | 2019-12-18 11:50 | NUR ---
IV REMOVED WITH CATHETER INTACT, PT TOLERATED WELL. REMOVED ID BANDS. TOOK PT IN WHEELCHAIR TO FRONT LOBBY WHERE DAUGHTER DRAKE TURCIOS WAS WAITING FOR HIM. EXPLAINED DISCHARGE PAPERWORK TO DAUGHTER. ASSISTED PT INTO DAUGHTER'S CAR. PT IN STABLE CONDITION.
[2019-12-18] MEDS ORDERED: DILTIAZEM 60 MG TAB PO SCH (20:00)
== END 2019-12-18 12:50 | disposition home or self-care (01) | DRG 378 ==
LOC: EDSEX 08:23 → MED 08:23 → MIC 11:53 → MTU 12-17 13:30
PROVIDERS: ADMIT General Practice; ATTEND General Practice
PROC: 0DBL8ZZ Excision of Transverse Colon, Via Natural or Artificial Opening Endoscopic (ICD-10-PCS; principal; 2019-12-17 12:00)
PROC: 0DBL8ZX Excision of Transverse Colon, Via Natural or Artificial Opening Endoscopic, Diagnostic (ICD-10-PCS; 2019-12-17 12:00)
DX: K57.31 Diverticulosis of large intestine without perforation or abscess with bleeding (principal); I47.1 Supraventricular tachycardia; E44.1 Mild protein-calorie malnutrition; I48.91 Unspecified atrial fibrillation; E11.65 Type 2 diabetes mellitus with hyperglycemia; Z68.20 Body mass index [BMI] 20.0-20.9, adult; E83.42 Hypomagnesemia; E87.6 Hypokalemia; I10 Essential (primary) hypertension; F03.90 Unspecified dementia, unspecified severity, without behavioral disturbance, psychotic disturbance, mood disturbance, and anxiety; K80.20 Calculus of gallbladder without cholecystitis without obstruction; K40.90 Unilateral inguinal hernia, without obstruction or gangrene, not specified as recurrent; K76.89 Other specified diseases of liver; E78.5 Hyperlipidemia, unspecified; I11.9 Hypertensive heart disease without heart failure; E83.39 Other disorders of phosphorus metabolism
CPT/HCPCS: 36415; 71045; 80048; 80053; 81001; 82272; 82948; 83036; 83690; 83735; 84100; 84443; 84484; 85025; 85610; 85730; 86886; 86900; 86901; 87081; 93005; 96361; 96365; 96366; 96375; 99285; C9113; J0153; J1160; J1200; J1815; J2001; J2250; J3010; J3475; J3480; J3490; J7030; J7060; Q0092

== ENCOUNTER 2020-07-17 16:14 | Emergency (ER) | payer MEDICARE ==
[~2020-07-17] VITALS: Ht 175.3 cm; Wt 68.0 kg
[~2020-07-17 16:14] MED LIST: DIGO0.1211 PO; DILT60TA94 PO; DONE10TA10 PO; GLIP10TE PO; LINA5TAB PO; METO50TE2 PO; PSYL0.4C2 PO; SIMV40TA1 PO
[2020-07-17 16:47] VITALS: BP 138/74
--- NOTE | 2020-07-17 17:17 | NUR ---
Patient assessed and discharged by AIRAM Sterling. No nursing interventions performed.
[2020-07-17 17:18] VITALS: BP 138/74
--- NOTE | 2020-07-17 17:18 | NUR ---
Patient discharged with v/s stable. Written and verbal after care instructions given and explained. Patient alert, oriented and verbalized understanding of instructions. Ambulatory with steady gait. All questions addressed prior to discharge. ID band removed. Patient advised to follow up with PMD. Rx of Zofran ODT 4mg given. Patient educated on indication of medication including possible reaction and side effects. Opportunity to ask questions provided and answered.
== END 2020-07-17 17:18 | disposition home or self-care (01) ==
LOC: MED 16:14
DX: R11.2 Nausea with vomiting, unspecified (principal); I10 Essential (primary) hypertension; F03.90 Unspecified dementia, unspecified severity, without behavioral disturbance, psychotic disturbance, mood disturbance, and anxiety; Z79.899 Other long term (current) drug therapy
CPT/HCPCS: 99283

== ENCOUNTER 2020-09-15 15:18 | Emergency (ER) | payer MEDICARE ==
[~2020-09-15] VITALS: Ht 167.6 cm; Wt 68.0 kg
[~2020-09-15 15:18] MED LIST changes: +DILT60TA PO; -DILT60TA94 PO
[2020-09-15 15:23] VITALS: BP 156/79
[2020-09-15] MEDS ORDERED: ACETAMINOPHEN 325 MG TAB PO ONE (15:45)
[2020-09-15 16:15] LABS: BASOPHILS % (AUTO) 0.4 % (0.0-2.0); EOSINOPHILS # (AUTO) 0.1 K/uL (0-0.4); EOSINOPHILS % (AUTO) 1.1 % (0.0-4.0); HEMATOCRIT 43.2 % (36-52); HEMOGLOBIN 14.7 g/dL (12.0-18.0); LYMPHOCYTES # (AUTO) 0.7 K/uL (2.0-11.5); LYMPHOCYTES % (AUTO) 7.6 % (20.5-51.1); MEAN CORPUSCULAR HEMOGLOBIN 31 pg (27-31); MEAN CORPUSCULAR HGB CONC 34 g/dL (33-37); MEAN CORPUSCULAR VOLUME 90.3 fL (80-94); MONOCYTES # (AUTO) 0.8 K/uL (0.8-1.0); MONOCYTES % (AUTO) 7.9 % (1.7-9.3); PLATELET COUNT (AUTO) 317 K/uL (140-450); RED BLOOD CELL COUNT(AUTO) 4.79 MIL/uL (4.20-6.10); RED CELL DISTRIBUTION WIDTH 13.8 % (11.6-13.7); WHITE BLOOD COUNT (AUTO) 9.6 K/uL (4.8-10.8)
[2020-09-15 16:42] LABS: ALBUMIN 3.6 g/dL (3.4-5.0); ASPARTATE AMINOTRANSFERASE 13 U/L (15-37); CARBON DIOXIDE 24.5 mmol/L (21-32); CHLORIDE 99 mmol/L (98-107); GLUCOSE 308 mg/dL (74-106); POTASSIUM 3.5 mmol/L (3.5-5.1); SODIUM SERUM 135 mmol/L (136-145); TOTAL BILIRUBIN 0.6 mg/dL (0.0-1.0); UREA NITROGEN, BLOOD 11 mg/dL (7-18)
[2020-09-15] MEDS ORDERED: ACET-2619 PO (17:36)
[2020-09-15 17:41] VITALS: BP 156/79
== END 2020-09-15 17:41 | disposition home or self-care (01) ==
LOC: MED 15:18
DX: M79.641 Pain in right hand (principal); R73.9 Hyperglycemia, unspecified; I10 Essential (primary) hypertension; Z98.890 Other specified postprocedural states
CPT/HCPCS: 36415; 73130; 80053; 83735; 85025; 85610; 93005; 99285

== ENCOUNTER 2021-08-14 16:19 | Inpatient (IN) | payer MEDICARE, SELFPAY ==
[~2021-08-14] VITALS: Ht 172.7 cm; Wt 62.6 kg
[~2021-08-14 16:19] MED LIST changes: +ACET-2619 PO
--- NOTE | 2021-08-14 16:22 | NUR ---
JONAH HUGHES VIA GURNEY TO BED 09.
--- NOTE | 2021-08-14 16:30 | NUR ---
PT PLACED ON NON REBREATHER 02 SATURATION 66%, ERMD AT BEDSIDE
[2021-08-14] MEDS ORDERED: NACL 0.9% 2,000 ML IV SCH (16:35)
[2021-08-14] MEDS ORDERED: VANCOMYCIN 1,000 MG in DEXTROSE 5% 250 ML IV ONE (16:35)
[2021-08-14] MEDS ORDERED: PIPERACILLIN/TAZOBACTAM 3.375 GM in DEXT 5% MINI-BAG PLUS 50 ML IV ONE (16:35)
--- NOTE | 2021-08-14 16:40 | NUR ---
O2 SATURATION 88%. RT AT BEDSIDE, PLACED PT ON BIPAP, PER DR MEMBRENO
[2021-08-14 16:48] VITALS: BP 112/60
[2021-08-14 17:00] LABS: BASOPHILS % (AUTO) 0.1 % (0.0-2.0); HEMATOCRIT 40.3 % (36-52); HEMOGLOBIN 13.5 g/dL (12.0-18.0); LYMPHOCYTES # (AUTO) 0.1 K/uL (2.0-11.5); LYMPHOCYTES % (AUTO) 0.6 % (20.5-51.1); MEAN CORPUSCULAR HEMOGLOBIN 31 pg (27-31); MEAN CORPUSCULAR HGB CONC 34 g/dL (33-37); MONOCYTES # (AUTO) 0.2 K/uL (0.8-1.0); MONOCYTES % (AUTO) 1.1 % (1.7-9.3); NEUTROPHILS # (AUTO) 14.7 K/uL (1.8-7.7); NEUTROPHILS % (AUTO) 98.2 % (42.2-75.2); PLATELET COUNT (AUTO) 402 K/uL (140-450); RED BLOOD CELL COUNT(AUTO) 4.33 MIL/uL (4.20-6.10); RED CELL DISTRIBUTION WIDTH 14.5 % (11.6-13.7); WHITE BLOOD COUNT (AUTO) 14.9 K/uL (4.8-10.8)
[2021-08-14 17:18] LABS: PROTHROMBIN TIME 12.3 secs (10.8-13.4)
[2021-08-14 17:21] LABS: ALBUMIN 1.6 g/dL (3.4-5.0); ANION GAP 23.5 (8-16); ASPARTATE AMINOTRANSFERASE 35 U/L (15-37); CARBON DIOXIDE 18.6 mmol/L (21-32); CHLORIDE 99 mmol/L (98-107); CREATININE 2.2 mg/dL (0.6-1.3); POTASSIUM 3.1 mmol/L (3.5-5.1); SODIUM SERUM 138 mmol/L (136-145)
[2021-08-14 17:31] LABS: GLUCOSE 608 mg/dL (74-106); UREA NITROGEN, BLOOD 62 mg/dL (7-18)
[2021-08-14] MEDS ORDERED: PIPERACILLIN/TAZOBACTAM 3.375 GM VIAL IV ONE (17:34)
[2021-08-14] MEDS ORDERED: VANCOMYCIN 1,000 MG VIAL ONE (17:34)
[2021-08-14] MEDS ORDERED: INSULIN REGULAR, HUMAN 100 UNIT/ML VIAL SUBQ ONE (18:10)
[2021-08-14 18:11] LABS: FREE T4 (FREE THYROXINE) 1.22 ng/dL (0.76-1.46); THYROID STIMULATING HORMONE 0.25 uIU/mL (0.34-3.74)
--- NOTE | 2021-08-14 18:43 | NUR ---
# 12 FR Urinary catheter inserted utilizing sterile technique. Immediate return of 30 ml YELLOW urine noted. Urine sample collected and sent to lab. Pt tolerated procedure WELL.
--- NOTE | 2021-08-14 18:44 | NUR ---
LUCIA AND URINE SAMPLED COLLECTED AND SENT TO LAB
--- NOTE | 2021-08-14 19:11 | NUR ---
PT PLACED ON HIGH FLOW BY RT
[2021-08-14 19:15] VITALS: BP 128/97
[2021-08-14] MEDS ORDERED: NACL 0.9% 500 ML IV ONE (19:15)
[2021-08-14] MEDS ORDERED: MAG SULF 2000 MG/WATER PREMIX 50 ML IV ONE (19:15)
--- NOTE | 2021-08-14 19:15 | NUR ---
PER DR. MEMBRENO DOWNGRADE PT FROM BIPAP TO HFNC SETTINGS 40 LPM, 100% FIO2. CURRENT SATURATION AT 97% RESPIRATIONS ARE LABORED AND TACHYPNEIC. WILL CONTINUE TO MONITOR.
[2021-08-14 19:32] LABS: APPEARANCE,URINE CLEAR (CLEAR); BILIRUBIN,URINE NEGATIVE (NEGATIVE); BLOOD, URINE 2+ (NEGATIVE); COLOR,URINE YELLOW (YELLOW); LEUKOCYTE ESTERASE ,URINE NEGATIVE (NEGATIVE); NITRITE, URINE NEGATIVE (NEGATIVE); PH,URINE 5.5 (5.0-9.0); UGLUCOSE 3+ (NEGATIVE)
[2021-08-14 19:33] LABS: RBC,URINE 20-50 /HPF (0-5); WBC,URINE 0-5 /HPF (0-5)
--- NOTE | 2021-08-14 19:36 | NUR ---
Pt report given to LOVE Dominguez RN. Transfer of care at this time.
[2021-08-14] MEDS ORDERED: DEXAMETHASONE 4 MG/ML VIAL IVP ONE (20:10)
[2021-08-14] MEDS ORDERED: DIGOXIN 0.25 MG/ML AMP IV ONE (20:15)
[2021-08-14] MEDS ORDERED: NACL 0.9% 1,000 ML IV SCH (20:40)
--- NOTE | 2021-08-14 20:56 | NUR ---
DAUGHTER DRAKE CALLED ASKING FOR UPDATE
[2021-08-14] MEDS ORDERED: INTUBATION KIT MC ONE (21:28)
[2021-08-14] MEDS ORDERED: ETOMIDATE 20 MG/10 ML VIAL IVP ONE (21:30)
[2021-08-14] MEDS ORDERED: ROCURONIUM 50 MG/5 ML VIAL IV ONE (21:30)
--- NOTE | 2021-08-14 21:30 | NUR ---
RECEIVED CALL FROM ER EMT ABOUT BED 9, SPOKE WITH DR. MEMBRENO ABOUT INTUBATING THE PT FOR AIRWAY PROTECTION. PT WAS INTUBATED WITH A SIZE 7.5 ET TUBE THE TUBE WAS 23 @ TEETH, CHEST X-RAY SHOWED THE TUBE 4.4 CM ABOVE THE NATALIE. PT TRANSPORTED WITH MYSELF, GROOVER AND STRIPER OPERATOR CARLO, AND INCOME TAX AUDITOR LOVE. ONCE CT WAS COMPLETE PT WAS TRANSPORTED TO ICU BED 8 AND PLACED ON THE VENT WITH SETTINGS AC/VC 450, RR 15, FIO2 100%, PEEP 5, PT IS SATURATING 100%, ABG AND SPUTUM TO BE ORDERED. WILL CONTINUE TO MONITOR
[2021-08-14] MEDS ORDERED: METOPROLOL 5 MG/5 ML VIAL IV ONE (21:45)
--- NOTE | 2021-08-14 22:30 | NUR ---
RECEIVED PT FROM ER VIA GURNEY; PT TRANSFERRED TO ICU 8.PT LETHARGIC,AFIB WITH RVR HR 173 NOTED ON MONITOR.ORALLY INTUBATED AC VC FIO2 100% TV450 RATE 15 PEEP 5.PERIPHERAL IV TO RT AC G18 INTACT INFUSING ORDERED IVF.INCONTINENT OF URINE.NPO.WITH DRY SCAB TO RT ELBOW NOTED.FLACC 0
--- NOTE | 2021-08-14 22:30 | NUR ---
PATIENT TAKEN TO RADIOLOGY FOR CT SCAN OF HEAD. RT AND MYSELF ACCOMPANIED PATIENT. PATIENT S/P INTUBATION IN NO ACUTE DISTRESS. TRANSFERED TO ICU BED [address] COMPLETED. PATIENT REPORT PROVIDED AT BEDSIDE TO ICU NURSE, PATIENT IN NO APPARENT ACUTE DISTRESS.
[2021-08-14 23:00] VITALS: BP 158/119
--- NOTE | 2021-08-14 23:17 | NUR ---
PHONE CALL TO PRESCHOOL ASSISTANT TEACHER DR TOUSSAINT; UPDATED ON PTS PRESENT CONDITION.MADE AWARE HR 207 AT THIS TIME, PER DR TOUSSAINT, HE WILL CHECK PTS PROFILE AND WILL CALL COAL CAGER AGAIN
[2021-08-14] MEDS ORDERED: METOPROLOL 50 MG TAB NG ONE (23:20)
--- NOTE | 2021-08-14 23:20 | NUR ---
PHONE CALL FROM DR TOUSSAINT,SCHOOL BUS ATTENDANT.NEW ORDERS RECEIVED, TO START AMIODARONE DRIP WITH LOADING DOSE AND ADMINISTER METOPROLOL/OGT.CARRIED OUT
[2021-08-14] MEDS ORDERED: AMIODARONE 450 MG/9 ML VIAL IV ONE (23:24)
[2021-08-14] MEDS ORDERED: AMIODARONE 150 MG/3 ML VIAL IV ONE (23:24)
[2021-08-14] MEDS ORDERED: METOPROLOL 50 MG TAB ONE (23:24)
--- NOTE | 2021-08-14 23:25 | NUR ---
PHONE CALL TO DR SAGE; MULTIMEDIA EDITOR, UPDATED ON PTS PRESENT CONDITION, QUESTIONS ANSWERED.ORDERED PROPOFOL DRIP FOR SEDATION
[2021-08-15] VITALS (24 sets, daily range): BP systolic 71–151; BP diastolic 17–98
[2021-08-15] MEDS: AMIODARONE 450 MG in DEXTROSE 5% 250 ML IV SCH ×2 (00:03→11:49)
[2021-08-15] MEDS: PROPOFOL 1000 MG/100 ML PREMIX 100 ML IV PRN ×2 (00:51→14:00)
--- NOTE | 2021-08-15 01:15 | NUR ---
SPOKE WITH DR. VILLALTA REGARDING CRITICAL ABG FOR PT. DR. VILLALTA DUE THE PTS HIGH CO2, ORDERED THE RATE ON THE VENTILATOR TO BE INCREASED FROM 15BPM-17BPM.
--- NOTE | 2021-08-15 01:39 | NUR ---
PHONE CALL TO PTS DELROY TURCIOS([phone]); UPDATED ON PTS PRESENT CONDITION.QUESTIONS ANSWERED.PER DAUGHTER DRAKE, PT RECEIVED COVID VACCINE AMY AND AMY BUT DOES NOT KNOW WHEN
--- NOTE | 2021-08-15 04:00 | NUR ---
PT DISTENDED; WEN CATHETER F12 INSERTED; 200ML URINE NOTED. MRSA NARES SPECIMEN SENT TO LAB
--- NOTE | 2021-08-15 05:35 | NUR ---
PHONE CALL TO DR SAGE, MADE AWARE PT COLD,CLAMMY DIAPHORETIC SKIN, TEMP 97.3, BLOOD SUGAR CHECK "HI" NEW ORDERS RECEIVED.CARRIED OUT
[2021-08-15] MEDS ORDERED: INSULIN REGULAR, HUMAN 100 UNIT/ML VIAL IVP SCH (05:50)
[2021-08-15] MEDS ORDERED: PHENYLEPHRINE 10 MG in NACL 0.9% 250 ML IV PRN (05:50)
[2021-08-15] MEDS ORDERED: PHENYLEPHRINE 10 MG/ML VIAL ONE (05:52)
--- NOTE | 2021-08-15 06:39 | NUR ---
PHONE CALL TO DR ENGEL, PER DR SAGE,TO CALL PCP IF PTS BLOOD SUGAR IS STILL HIGH; BS CHECKED TWICE, READING SAYS "HI", DR ENGEL ALSO AWARE THAT BLOOD DRAW FROM LAB WAS NOT DONE EARLIER, CHEMICAL RECLAMATION EQUIPMENT OPERATOR AND RN UNABLE TO DRAW BLOOD,PTS SKIN SO COLD AND CLAMMY,TEMP 97.3/AXILLA.DR ENGEL SAID TO CALL LAB AND LAB DRAW NOW AND TO GIVE ADDITIONAL 10 UNITS REGULAR INSULIN IVP
[2021-08-15 07:02] LABS: BASOPHILS % (AUTO) 0.3 % (0.0-2.0); EOSINOPHILS % (AUTO) 0.1 % (0.0-4.0); HEMATOCRIT 38.1 % (36-52); HEMOGLOBIN 12.2 g/dL (12.0-18.0); LYMPHOCYTES # (AUTO) 0.1 K/uL (2.0-11.5); MEAN CORPUSCULAR HEMOGLOBIN 30 pg (27-31); MEAN CORPUSCULAR HGB CONC 32 g/dL (33-37); MEAN CORPUSCULAR VOLUME 95.1 fL (80-94); MONOCYTES # (AUTO) 0.1 K/uL (0.8-1.0); NEUTROPHILS # (AUTO) 12.5 K/uL (1.8-7.7); PLATELET COUNT (AUTO) 309 K/uL (140-450); RED CELL DISTRIBUTION WIDTH 15.1 % (11.6-13.7); WHITE BLOOD COUNT (AUTO) 12.7 K/uL (4.8-10.8)
[2021-08-15 07:10] LABS: ANION GAP 30.7 (8-16); CARBON DIOXIDE 11.8 mmol/L (21-32); CHLORIDE 100 mmol/L (98-107); CREATININE 3.1 mg/dL (0.6-1.3); POTASSIUM 5.5 mmol/L (3.5-5.1); SODIUM SERUM 137 mmol/L (136-145)
--- NOTE | 2021-08-15 07:11 | NUR ---
PATIENT HAS BEEN SCREENED AND CATEGORIZED HIGH NUTRITION RISK. PATIENT WILL BE SEEN WITHIN 1-2 DAYS OF ADMISSION. 08/16/21-08/17/21 WALDO CUMMINS MS, RDN
[2021-08-15 07:14] LABS: GLUCOSE 693 mg/dL (74-106); UREA NITROGEN, BLOOD 78 mg/dL (7-18)
--- NOTE | 2021-08-15 07:25 | NUR ---
RECEIVED BEDSIDE REPORT FROM SIM LAWSON FOR CONTINUITY OF CARE. PT SEDATED IN THE BED, RASS -3. ETT TO VENT ACVC, FIO2 100%, R 17, PEEP 5, VT 450. OGT IN PLACE, CLAMPED. SR ON MONITOR. F/C IN PLACE, DRAINING TO GRAVITY. GENERALIZED WEAKNESS. W/ SCAB TO R ELBOW. R AC 18G IV IN PLACE INFUSING PROPOFOL AT 5 MCG/KG/H. R FA 20G IN PLACE INFUSING NEOSYNEPHRINE AT 50 MCG/MIN, AMIODARONE AT 0.5 MG/MIN, AND NS AT 100 ML/H. DROPLET PRECAUTIONS IN PLACE FOR COVID. SAFETY PRECAUTIONS MET. CALL LIGHT WITHIN REACH. INITIAL ASSESSMENT COMPLETE, WILL CONTINUE TO MONITOR.
[2021-08-15] MEDS ORDERED: INSULIN REGULAR, HUMAN 100 UNIT/ML VIAL IVP ONE (07:30)
--- NOTE | 2021-08-15 07:30 | NUR ---
WITNESSED PHONE CALL TO DR ENGEL FROM [facility] LAWSON. TELEPHONE ORDERS RECEIVED.
[2021-08-15 07:35] LABS: LYMPHOCYTES % (AUTO) 0.9 % (20.5-51.1); MONOCYTES % (AUTO) 0.5 % (1.7-9.3); NEUTROPHILS % (AUTO) 98.2 % (42.2-75.2)
[2021-08-15] MEDS: NACL 0.9% 1,000 ML IV SCH ×5 (08:00→22:30)
[2021-08-15] MEDS: BLOOD GLUCOSE MONITORING 1 DEV DEV FS SCH ×16 (08:00→23:00)
[2021-08-15] MEDS ORDERED: NOREPINEPHRINE 4 MG/4 ML VIAL IV ONE ×3 (08:28→23:54)
[2021-08-15] MEDS: NOREPINEPHRINE 4 MG in DEXTROSE 5% 250 ML IV PRN ×2 (08:59→19:30)
--- NOTE | 2021-08-15 09:00 | NUR ---
MADE PHONE CALL TO DRAKE TAM, PT DAUGHTER. UPDATED REGARDING PT CONDITION. ALL QUESTIONS ANSWERED AT THIS TIME. OBTAINED TELEPHONE CONSENT FOR PICC LINE. WITNESSES WITH YOLANDA LAWSON.
[2021-08-15] MEDS: PHENYLEPHRINE 40 MG in NACL 0.9% 250 ML IV PRN ×2 (10:11→19:30)
[2021-08-15] MEDS: INSULIN LISPRO SLIDING SCALE 100 UNITS/ML VIAL SUBQ PRN ×2 (11:00→12:30)
--- NOTE | 2021-08-15 11:00 | NUR ---
SEEN AND EXAMINED BY DR ENGEL. VERBAL ORDERS RECEIVED.
[2021-08-15] MEDS ORDERED: DEXTROSE 50% 50 ML SYR IVP PRN (11:10)
[2021-08-15] MEDS ORDERED: ONDANSETRON 4 MG/2 ML VIAL IM/IVP PRN (11:15)
[2021-08-15] MEDS ORDERED: DOCUSATE SODIUM 100 MG GELCAP PO PRN (11:15)
[2021-08-15] MEDS ORDERED: LORazepam 2 MG/ML VIAL IM/IVP PRN (11:15)
[2021-08-15] MEDS ORDERED: POTASSIUM CHLORIDE 10 MEQ TABER PO PRN (11:15)
[2021-08-15] MEDS ORDERED: ZOLPIDEM 5 MG TAB PO PRN (11:15)
[2021-08-15] MEDS ORDERED: MORPHINE SULFATE 2 MG/ML SYR IVP PRN (11:15)
[2021-08-15] MEDS ORDERED: HYDROcodone/APAP 5/325 MG 1 TAB TAB PO PRN (11:15)
[2021-08-15] MEDS ORDERED: MAG SULF 2000 MG/WATER PREMIX 50 ML IV PRN (11:15)
[2021-08-15] MEDS ORDERED: ALBUTEROL HFA MDI 90 MCG/ACTUATION 8 GM INH PRN (11:15)
[2021-08-15] MEDS ORDERED: ACETAMINOPHEN 325 MG TAB PO PRN (11:15)
[2021-08-15 11:39] LABS: PROTHROMBIN TIME 13.5 secs (10.8-13.4)
[2021-08-15 11:50] LABS: CHOL/HDL RATIO 9.6 (1-4.5); THYROID STIMULATING HORMONE 0.31 uIU/mL (0.34-3.74)
[2021-08-15] MEDS ORDERED: PSYLLIUM HUSK PO SCH (13:00)
[2021-08-15] MEDS ORDERED: INSULIN LISPRO SLIDING SCALE 100 UNITS/ML VIAL SUBQ PRN (13:05)
[2021-08-15 13:12] LABS: ANION GAP 29.9 (8-16); CHLORIDE 103 mmol/L (98-107); CREATININE 3.4 mg/dL (0.6-1.3); POTASSIUM 5.7 mmol/L (3.5-5.1); SODIUM SERUM 136 mmol/L (136-145)
[2021-08-15 13:14] LABS: CARBON DIOXIDE 8.8 mmol/L (21-32)
[2021-08-15 13:15] LABS: GLUCOSE 545 mg/dL (74-106); UREA NITROGEN, BLOOD 84 mg/dL (7-18)
--- NOTE | 2021-08-15 13:15 | NUR ---
SEEN AND EXAMINED BY DR SAGE. VERBAL ORDERS RECEIVED.
[2021-08-15] MEDS ORDERED: SODIUM BICARBONATE 8.4% PFS 50 MEQ/50 ML SYR IVP SCH (13:25)
--- NOTE | 2021-08-15 13:30 | NUR ---
SEEN AND EXAMINED BY DR TOUSSAINT. VERBAL ORDERS RECEIVED.
[2021-08-15] MEDS: INSULIN REGULAR, HUMAN 100 UNIT in NACL 0.9% 100 ML IV SCH ×2 (13:45)
[2021-08-15] MEDS ORDERED: NACL 0.9% IV SCH (14:00)
[2021-08-15] MEDS ORDERED: DILTIAZEM 60 MG TAB PO SCH (14:00)
[2021-08-15] MEDS ORDERED: CALCIUM GLUCONATE IV SCH (14:00)
[2021-08-15 14:22] LABS: MAGNESIUM 3.8 mg/dL (1.8-2.4); PHOSPHORUS 8.8 mg/dL (2.5-4.9)
[2021-08-15 16:51] LABS: ANION GAP 22.7 (8-16); CHLORIDE 104 mmol/L (98-107); CREATININE 3.6 mg/dL (0.6-1.3); POTASSIUM 3.7 mmol/L (3.5-5.1); SODIUM SERUM 144 mmol/L (136-145)
[2021-08-15 16:54] LABS: GLUCOSE 422 mg/dL (74-106); UREA NITROGEN, BLOOD 82 mg/dL (7-18)
[2021-08-15 16:55] LABS: MAGNESIUM 3.5 mg/dL (1.8-2.4); PHOSPHORUS 7.4 mg/dL (2.5-4.9)
--- NOTE | 2021-08-15 17:45 | NUR ---
FANNIE PICC RN AT BEDSIDE.
--- NOTE | 2021-08-15 18:02 | NUR ---
XRAY AT BEDSIDE.
--- NOTE | 2021-08-15 19:20 | NUR ---
ENDORSED BEDSIDE REPORT TO DEBRA LAWSON FOR CONTINUITY OF CARE.
[2021-08-15 20:49] LABS: ANION GAP 23.6 (8-16); CARBON DIOXIDE 19.8 mmol/L (21-32); CHLORIDE 106 mmol/L (98-107); CREATININE 3.6 mg/dL (0.6-1.3); GLUCOSE 243 mg/dL (74-106); POTASSIUM 3.4 mmol/L (3.5-5.1); SODIUM SERUM 146 mmol/L (136-145)
[2021-08-15 20:53] LABS: MAGNESIUM 3.4 mg/dL (1.8-2.4)
[2021-08-15 21:13] LABS: UREA NITROGEN, BLOOD 84 mg/dL (7-18)
[2021-08-15] MEDS: DEXT 5% / NACL 0.45% 1,000 ML IV SCH ×2 (22:00→22:57)
[2021-08-15] MEDS: ZINC SULF 220 MG CAP PO SCH (22:50)
[2021-08-15] MEDS: AMIODARONE 200 MG TAB PO SCH (22:51)
[2021-08-15] MEDS: PSYLLIUM 12.2 GM/PKT PO SCH (22:51)
[2021-08-15] MEDS: SIMVASTATIN 40 MG TAB PO SCH (22:52)
[2021-08-16] VITALS (30 sets, daily range): BP systolic 90–150; BP diastolic 36–92
[2021-08-16] MEDS ORDERED: PHENYLEPHRINE 10 MG/ML VIAL ONE ×3 (00:22→18:03)
[2021-08-16] MEDS: BLOOD GLUCOSE MONITORING 1 DEV DEV FS SCH ×15 (01:52→17:34)
[2021-08-16] MEDS: DEXT 5% / NACL 0.45% 1,000 ML IV SCH (05:25)
[2021-08-16] MEDS ORDERED: NOREPINEPHRINE 4 MG/4 ML VIAL IV ONE (05:33)
[2021-08-16 05:53] LABS: BASOPHILS % (AUTO) 0.1 % (0.0-2.0); EOSINOPHILS % (AUTO) 0.1 % (0.0-4.0); HEMATOCRIT 35.7 % (36-52); HEMOGLOBIN 11.8 g/dL (12.0-18.0); LYMPHOCYTES # (AUTO) 0.2 K/uL (2.0-11.5); LYMPHOCYTES % (AUTO) 1.3 % (20.5-51.1); MEAN CORPUSCULAR HEMOGLOBIN 31 pg (27-31); MEAN CORPUSCULAR HGB CONC 33 g/dL (33-37); MEAN CORPUSCULAR VOLUME 92.4 fL (80-94); MONOCYTES # (AUTO) 0.2 K/uL (0.8-1.0); MONOCYTES % (AUTO) 1.1 % (1.7-9.3); NEUTROPHILS # (AUTO) 14.7 K/uL (1.8-7.7); NEUTROPHILS % (AUTO) 97.4 % (42.2-75.2); PLATELET COUNT (AUTO) 150 K/uL (140-450); RED BLOOD CELL COUNT(AUTO) 3.86 MIL/uL (4.20-6.10); RED CELL DISTRIBUTION WIDTH 14.8 % (11.6-13.7); WHITE BLOOD COUNT (AUTO) 15.1 K/uL (4.8-10.8)
[2021-08-16 07:11] LABS: ALBUMIN 1.5 g/dL (3.4-5.0); ANION GAP 21.9 (8-16); CARBON DIOXIDE 19.1 mmol/L (21-32); CHLORIDE 107 mmol/L (98-107); GLUCOSE 177 mg/dL (74-106); MAGNESIUM 3.1 mg/dL (1.8-2.4); SODIUM SERUM 144 mmol/L (136-145); TOTAL BILIRUBIN 1.7 mg/dL (0.0-1.0)
--- NOTE | 2021-08-16 07:25 | NUR ---
RECEIVED BEDSIDE REPORT FROM JEWELRY CUTTER RN FOR CONTINUITY OF CARE. PT SEDATED IN THE BED, RASS -3. ETT TO VENT ACVC, FIO2 100%, R 17, PEEP 5, VT 450. OGT IN PLACE FOR MED ADMINISTRATION, NOT ON FFEDING. SR ON MONITOR. F/C IN PLACE, DRAINING TO GRAVITY. GENERALIZED WEAKNESS. W/ SCAB TO R ELBOW. HAS KARO PICC LINE DOUBLE LUMEN AND RFA 20 G IV. INTACT AND PATENT. INFUSING PROPOFOL AT 20 MCG/KG/MIN DRY WEIGHT AT 62.5 KG. LEVOPHED AT 16 MCG/MIN. CONTINUED POC. DROPLET PRECAUTIONS IN PLACE FOR COVID. SAFETY PRECAUTIONS MET. CALL LIGHT WITHIN REACH. WILL CONTINUE TO MONITOR.
[2021-08-16] MEDS: NACL 0.9% 1,000 ML IV SCH ×3 (07:43→13:04)
[2021-08-16 08:32] LABS: LACTATE DEHYDROGENASE 8886 U/L (85-227)
[2021-08-16] MEDS ORDERED: AZITHROMYCIN 250 MG TAB PO SCH (09:00)
[2021-08-16] MEDS ORDERED: LINAGLIPTIN 5 MG PO SCH (09:00)
[2021-08-16] MEDS ORDERED: VITAMIN D 400 IU TAB PO SCH (09:00)
[2021-08-16] MEDS ORDERED: ASCORBIC ACID 500 MG TAB PO SCH (09:00)
[2021-08-16] MEDS ORDERED: glipiZIDE ER 5 MG TABER PO SCH (09:00)
[2021-08-16] MEDS ORDERED: DONEPEZIL 10 MG TAB PO SCH (09:00)
[2021-08-16] MEDS ORDERED: NON-FORMULARY ITEM (Linagliptin (Tradjenta) 1 TAB) PO SCH (09:00)
[2021-08-16] MEDS ORDERED: METOPROLOL SUCCINATE 50 MG TABER PO SCH (09:00)
[2021-08-16] MEDS ORDERED: DIGOXIN 0.125 MG TAB PO SCH (09:00)
--- NOTE | 2021-08-16 09:23 | NUR ---
PT DESATURATING TO 70'S%, PEEP INCREASED TO 12 cmH2O, SPO2 IMPROVED. NURSE AWARE.
--- NOTE | 2021-08-16 09:25 | NUR ---
DISCHARGE PLANNING Received call from Tierra at [facility], ph [phone] opt 1, & updated on pt status.
--- NOTE | 2021-08-16 09:25 | NUR ---
RT AT BEDSIDE. INCREASED PEEP TO 12
[2021-08-16] MEDS: AMIODARONE 200 MG TAB PO SCH ×2 (09:26→21:00)
[2021-08-16] MEDS: ZINC SULF 220 MG CAP PO SCH ×2 (09:26→21:00)
--- NOTE | 2021-08-16 09:30 | NUR ---
ALL SCHEDULED MEDS GIVEN. PT IS STABLE. NO DISTRESS NOTED. WILL CONTINUE TO MONITOR.
[2021-08-16] MEDS: INSULIN REGULAR, HUMAN 100 UNIT in NACL 0.9% 100 ML IV SCH ×2 (10:39)
--- NOTE | 2021-08-16 11:15 | NUR ---
PT. WITH LOW TEVIN SCALE AT HIGH RISK, PT ADMITTED WITH COVID POSITIVE AND RIGHT ELBOW DRY STABLE SCAB 2X3 CM ESTEBAN -WOUND SKIN DRY AND INTACT, CONTINUE TO FOLLOW PRESSURE INJURY PREVENTION INTERVENTIONS. POTENTIAL COVID RELATED SKIN FAILURE DUE TO TISSUE LESS TOLERATE TO PRESSURE, SHEARING AND POSSIBLE ASSOCIATED WITH MICROVASCULAR INJURY AND HYPOXIA -TURN AND REPOSITION PATIENT Q 2H -INSPECT SKIN UNDER AND AROUND MEDICAL DEVICES. -ASSESS AND MONITOR SKIN CONDITION DURING POSITION CHANGE -OFFLOAD BILATERAL HEELS BY PLACING PILLOWS UNDER CALVES AT ALL TIMES, UNLESS OTHERWISE CONTRAINDICATED -APPLY HEEL PROTECTORS -PRESSURE REDISTRIBUTION SURFACE AND OFFLOADING SACRALCOCCYX -MANAGE MOISTURE, FRICTION AND SHEAR BY KEEP SKIN CLEAN AND DRY. -MANAGE FRICTION AND SHEAR BY USING LIFT SHEET TO REPOSITION PATIENT -HOB 30 DEGREE TOLERATE -PLEASE FOLLOW RD RECOMMENDATIONS PLEASE NOTIFIED WOUND CARE NURSE FOR ANY CHANGE OF SKIN CONDITION Addendum: 08/16/21 at 1149 by Aramis Wagoner RN (Grace) PLEASE APPLY HYDRAGUARD TO ALL LIMBS, PERINEUM BID AND PRN IF SOILING
--- NOTE | 2021-08-16 11:30 | NUR ---
DR. COLEMAN AT BEDSIDE
[2021-08-16] MEDS: HYDRAGUARD CREAM TP SCH (13:04)
[2021-08-16] MEDS: PROPOFOL 1000 MG/100 ML PREMIX 100 ML IV PRN (13:32)
[2021-08-16 13:47] LABS: ANION GAP 22.6 (8-16); CARBON DIOXIDE 18.5 mmol/L (21-32); CHLORIDE 108 mmol/L (98-107); GLUCOSE 94 mg/dL (74-106); POTASSIUM 4.1 mmol/L (3.5-5.1); SODIUM SERUM 145 mmol/L (136-145)
[2021-08-16 13:53] LABS: CREATININE 4.7 mg/dL (0.6-1.3); UREA NITROGEN, BLOOD 94 mg/dL (7-18)
[2021-08-16 14:04] LABS: ASPARTATE AMINOTRANSFERASE 10140 U/L (15-37)
[2021-08-16 14:05] LABS: UREA NITROGEN, BLOOD 90 mg/dL (7-18)
[2021-08-16 14:06] LABS: CREATININE 4.1 mg/dL (0.6-1.3)
[2021-08-16] MEDS ORDERED: BUMETANIDE 1 MG/4 ML VIAL IV ONE (14:10)
[2021-08-16] MEDS: NOREPINEPHRINE 4 MG in DEXTROSE 5% 250 ML IV PRN (14:20)
[2021-08-16] MEDS ORDERED: DEXTROSE 50% 50 ML SYR IVP PRN (14:30)
[2021-08-16] MEDS ORDERED: INSULIN LISPRO SLIDING SCALE 100 UNITS/ML VIAL SUBQ PRN (14:30)
--- NOTE | 2021-08-16 14:30 | NUR ---
DISCONTINUED HEPARIN DRIP
[2021-08-16] MEDS ORDERED: NOREPINEPHRINE 16 MG in DEXTROSE 5% 250 ML IV PRN (14:45)
--- NOTE | 2021-08-16 14:55 | NUR ---
DR. SAGE AT BEDSIDE. NEW ORDERS RECEIVED.
[2021-08-16] MEDS ORDERED: BUMETANIDE IV SCH (15:00)
[2021-08-16] MEDS ORDERED: NACL 0.9% IV SCH (15:00)
--- NOTE | 2021-08-16 15:01 | NUR ---
08/16/21 RD INITIAL ASSESSMENT COMPLETED PLEASE REFER TO NUTRITION ASSESSMENT UNDER CARE ACTIVITY FOR ESTIMATED NUTRITIONAL NEEDS. 1. WHEN/IF MEDICALLY APPROPRIATE, RECOMMEND GLUCERNA 1.2 WITH A GOAL RATE OF 55 ML/HR -FWF: 200 ML Q6H OR PER MD -START AT 10 ML/HR AND INCREASE 10 ML Q4H TOLERATED -WITH PROPOFOL @ 7.6 ML/HR, PT WILL RECEIVE 1785 KCAL AND 79 GM PROTEIN, MEETING ESTIMATED NUTRITIONAL GOALS 2. IF PT IS NOT ON PROPOFOL, RECOMMEND GLUCERNA 1.2 WITH A GOAL RATE OF 60 ML/HR TOLERATED 3. RD TO FOLLOW-UP 2-3 DAYS, HIGH RISK NISHI IRWIN RD
--- NOTE | 2021-08-16 17:34 | NUR ---
BLOOD SUGAR CHECK WAS 90. NO INSULIN COVERAGE NEEDED
[2021-08-16] MEDS: PHENYLEPHRINE 40 MG in NACL 0.9% 250 ML IV PRN (18:16)
--- NOTE | 2021-08-16 18:16 | NUR ---
STARTED PATIENT ON EDGAR-SYNEPHRINE DUE TO HYPOTENSION.
--- NOTE | 2021-08-16 19:28 | NUR ---
ENDORSED TO BOOT TRIMMER NURSE FOR CONTINUITY OF CARE. PT IS STABLE.
--- NOTE | 2021-08-16 19:30 | NUR ---
ASSUMED CARE OF PT.INITIAL ASSESSMENT COMPLETED.PT SEDATED.SR NOTED ON MONITOR.ETT TO VENT AC PRVC FIO2 100% RATE 30 TV 450 PEEP 14.W/KARO PICC LINE INTACT.INFUSING PROPOFOL 20MCG/KG/MIN DRY WT 63.5KG, LEVOPHED 16 MG IN 250ML D5W AT 22 MCG/MIN AND EDGAR SYNEPHRINE DRIP 40MG IN 250ML NS AT 100 MCG/MIN.W/PERIPHERAL IV TO RT F/A G20 INTACT.W/OGT INTACT.PLACEMENT CHECKED, CLAMPED FOR NOW, WILL START OGT FEEDING ORDERED.W/WEN CATHETER TO BSD DRAINING SCANTY AMT OF YELLOW URINE.W/SCAB TO RT ELBOW STILL NOTED.PTS FINGER /TOE TIPS W/PURPLISH DISCOLORATION NOTED.FLACC 0
--- NOTE | 2021-08-16 20:02 | NUR ---
PHONE CALL FROM PTS MADI, SHE IS NOT ON THE FACE SHEET, SO SPOKE WITH DRAKE TURCIOS,PTS NOK,DAUGHTER,SHE WANTS HER MOM MADI TO BE ABLE TO DECIDE FOR PT.WILL NOTIFY ADMITTING.UPDATED ON PTS PRESENT CONDITION.QUESTIONS ANSWERED
[2021-08-16] MEDS: SIMVASTATIN 40 MG TAB PO SCH (21:00)
[2021-08-16] MEDS: PSYLLIUM 12.2 GM/PKT PO SCH (21:00)
[2021-08-16] MEDS ORDERED: INSULIN LANTUS 100 UNITS/ML 10 ML VIAL SUBQ SCH (21:00)
--- NOTE | 2021-08-16 21:00 | NUR ---
OGT FEEDING STARTED ORDERED.PLACEMENT CHECKED.NOTED COFFEE GROUND OUTPUT PRIOR TO FEEDING,ABOUT 20ML.WILL CONTINUE TO MONITOR
[2021-08-17] VITALS (17 sets, daily range): BP systolic 45–141; BP diastolic 23–68
[2021-08-17] MEDS: BLOOD GLUCOSE MONITORING 1 DEV DEV FS SCH ×2 (00:39→06:28)
[2021-08-17] MEDS: HYDRAGUARD CREAM TP SCH (01:00)
[2021-08-17] MEDS: PHENYLEPHRINE 40 MG in NACL 0.9% 250 ML IV PRN (02:00)
--- NOTE | 2021-08-17 02:00 | NUR ---
LARGE AMT OF FROTHY ORAL SECRETIONS NOTED.PT SUCTIONED.REPOSITIONED.FLACC 0
[2021-08-17] MEDS: PROPOFOL 1000 MG/100 ML PREMIX 100 ML IV PRN (03:20)
[2021-08-17] MEDS ORDERED: PHENYLEPHRINE 10 MG/ML VIAL ONE (04:59)
--- NOTE | 2021-08-17 05:10 | NUR ---
PHONE CALL TO DR FLORES,CARDIO, PTS BP 45/28; MAX DOSE ON LEVOPHED AND EDGAR SYNEPHRINE, NO ANSWER. PHONE CALL MADE TO [employer] SUBMISSIONS ASSOCIATE,MOBILITY SCOOTER REPAIRER IS DR FRIEND, LEFT MESSAGE TO EXCHANGE FOR MD TO CALL.AWAITING CALL BACK
--- NOTE | 2021-08-17 05:15 | NUR ---
PHONE CALL TO DR ENGEL, LEFT MESSAGE TO CALL IN STORE MARKETING ASSOCIATE BACK FOR LOW BP, PT MAX DOSE ON LEVOPHED AND EDGAR SYNEPHRINE.AWAITING CALL
--- NOTE | 2021-08-17 05:20 | NUR ---
PHONE CALL TO PTS DAUGHTER DRAKE, SPOKE WITH DRAKE AND MADI, PTS , UPDATED ON PTS PRESENT CONDITION.PER DRAKE,THEY HAVE DECIDED TO CHANGE THE CODE STATUS TO DNR, WITNESSED BY RN SOCO DICKSON.
--- NOTE | 2021-08-17 06:29 | NUR ---
PTS DAUGHTER DRAKE AND PTS MADI IN THE UNIT; UPDATE GIVEN,CONFIRMED CODE STATUS CHANGED TO DNR
--- NOTE | 2021-08-17 06:30 | NUR ---
PHONE CALL FROM DR ENGEL,UPDATED ON PTS PRESENT CONDITION.QUESTIONS ANSWERED. AWARE FAMILY IN THE UNIT, SHE SAID SHE IS ON HER WAY
[2021-08-17 06:32] LABS: BASOPHILS % (AUTO) 0.1 % (0.0-2.0); EOSINOPHILS % (AUTO) 0.2 % (0.0-4.0); HEMATOCRIT 35.2 % (36-52); HEMOGLOBIN 10.7 g/dL (12.0-18.0); LYMPHOCYTES # (AUTO) 0.3 K/uL (2.0-11.5); LYMPHOCYTES % (AUTO) 2.2 % (20.5-51.1); MEAN CORPUSCULAR HEMOGLOBIN 31 pg (27-31); MEAN CORPUSCULAR HGB CONC 30 g/dL (33-37); MEAN CORPUSCULAR VOLUME 101.3 fL (80-94); MONOCYTES # (AUTO) 0.3 K/uL (0.8-1.0); NEUTROPHILS % (AUTO) 95.5 % (42.2-75.2); PLATELET COUNT (AUTO) 104 K/uL (140-450); RED BLOOD CELL COUNT(AUTO) 3.48 MIL/uL (4.20-6.10); RED CELL DISTRIBUTION WIDTH 17.3 % (11.6-13.7); WHITE BLOOD COUNT (AUTO) 13.6 K/uL (4.8-10.8)
--- NOTE | 2021-08-17 07:05 | NUR ---
RECEIVED REPORT, ASSUMED CARE OF PT. FAMILY AT DOORWAY. PT ON VENTILATOR SETTINGS ACPRVC, FI02 100%, TV 450, RATE 30 PEEP 14, MONITOR SHOWING JUNCTIONAL RHYTHM, SKIN PALE, COOL.
[2021-08-17 07:12] LABS: ALBUMIN 1.3 g/dL (3.4-5.0); CHLORIDE 103 mmol/L (98-107); GLUCOSE 209 mg/dL (74-106); MAGNESIUM 3.5 mg/dL (1.8-2.4); SODIUM SERUM 142 mmol/L (136-145); TOTAL BILIRUBIN 1.8 mg/dL (0.0-1.0)
--- NOTE | 2021-08-17 07:35 | NUR ---
MONITOR SHOWING ASYSTOLE, J2EE CONSULTANT TO BEDSIDE TO PRONOUNCE . FAMILY AT BEDSIDE DURING . ALL QUESTIONS ANSWERED. PT HAS NO BELONGINGS HERE AT HOSPITAL, FAMILY AWARE. PT FORMALLY PRONOUNCED AT 0735 AM. BY RADHA SOW RN. REFER TO RECORD OF FOR TIMES OF NOTIFICATIONS.
[2021-08-17 08:57] LABS: POTASSIUM 7.3 mmol/L (3.5-5.1)
[2021-08-17 08:58] LABS: CARBON DIOXIDE 8.3 mmol/L (21-32); CREATININE 6.8 mg/dL (0.6-1.3); UREA NITROGEN, BLOOD 110 mg/dL (7-18)
[2021-08-17] MEDS ORDERED: METOPROLOL 50 MG TAB GT SCH (09:00)
[2021-08-17] MEDS ORDERED: glipiZIDE 10 MG TAB GT SCH (09:00)
[2021-08-17] MEDS ORDERED: ASCORBIC ACID 500 MG/5 ML ORASYR GT SCH (09:00)
[2021-08-17 10:03] LABS: ASPARTATE AMINOTRANSFERASE 4232 U/L (15-37); LACTATE DEHYDROGENASE 4649 U/L (85-227)
[2021-08-17 13:15] LABS: PHOSPHORUS 16.8 mg/dL (2.5-4.9)
== END 2021-08-17 07:35 | DRG 871 ==
LOC: MED 16:19 → MTU 20:48 → MIC 22:58
PROC: 5A1945Z Respiratory Ventilation, 24-96 Consecutive Hours (ICD-10-PCS; principal; 2021-08-14)
PROC: 0BH17EZ Insertion of Endotracheal Airway into Trachea, Via Natural or Artificial Opening (ICD-10-PCS; 2021-08-14)
PROC: 5A09357 Assistance with Respiratory Ventilation, Less than 24 Consecutive Hours, Continuous Positive Airway Pressure (ICD-10-PCS; 2021-08-14)
PROC: 5A0935A Assistance with Respiratory Ventilation, Less than 24 Consecutive Hours, High Flow/Velocity Cannula (ICD-10-PCS; 2021-08-14)
PROC: 02HV33Z Insertion of Infusion Device into Superior Vena Cava, Percutaneous Approach (ICD-10-PCS; 2021-08-14)
DX: A41.9 Sepsis, unspecified organism (principal); E11.10 Type 2 diabetes mellitus with ketoacidosis without coma; U07.1 COVID-19; E11.00 Type 2 diabetes mellitus with hyperosmolarity without nonketotic hyperglycemic-hyperosmolar coma (NKHHC); J12.82 Pneumonia due to coronavirus disease 2019; J96.01 Acute respiratory failure with hypoxia; R65.21 Severe sepsis with septic shock; N17.0 Acute kidney failure with tubular necrosis; E43 Unspecified severe protein-calorie malnutrition; E87.2 Acidosis; D68.59 Other primary thrombophilia; R57.1 Hypovolemic shock; E78.5 Hyperlipidemia, unspecified; E87.5 Hyperkalemia; E11.22 Type 2 diabetes mellitus with diabetic chronic kidney disease; R00.1 Bradycardia, unspecified; I46.9 Cardiac arrest, cause unspecified; K59.00 Constipation, unspecified; I48.91 Unspecified atrial fibrillation; I12.9 Hypertensive chronic kidney disease with stage 1 through stage 4 chronic kidney disease, or unspecified chronic kidney disease; N18.9 Chronic kidney disease, unspecified; R74.01 Elevation of levels of liver transaminase levels; D53.9 Nutritional anemia, unspecified; E86.0 Dehydration; F03.90 Unspecified dementia, unspecified severity, without behavioral disturbance, psychotic disturbance, mood disturbance, and anxiety; Z88.0 Allergy status to penicillin; Z79.899 Other long term (current) drug therapy; Z68.21 Body mass index [BMI] 21.0-21.9, adult
CPT/HCPCS: 31500; 36415; 36600; 70450; 71045; 80048; 80053; 80162; 81001; 82009; 82550; 82553; 82803; 82948; 83036; 83605; 83615; 83690; 83735; 83880; 84100; 84134; 84439; 84443; 84484; 85025; 85379; 85610; 85651; 85730; 86140; 87040; 87070; 87081; 87086; 87205; 89220; 93005; 94003; 94660; 96361; 96365; 96368; 96372; 99291; J0282; J0610; J0696; J1100; J1160; J1644; J1815; J2370; J2543; J2704; J3370; J3475; J3490; J3535; J7030; J7060; Q0092